=== PATIENT | male | born 1940 | race Caucasian/White ===

== ENCOUNTER → 2017-02-12 | Outpatient (CLI) | payer BC ==
[~2017-02-12] MED LIST: ALBU1AER9 INH; CETI10TA84 PO; MESA1.2T PO; OMEP20CA59 PO
[2017-02-12 12:19] LABS: BASO % 0.6 %; BASO ABS # 0.02 K/uL (0-0.2); COMPLETE YES; HEMATOCRIT 45.9 % (42-52); IG% 0.3 %; LYMPH % 36.5 %; LYMPH ABS # 1.22 K/uL (1.2-3.4); MEAN CELL VOLUME 92.5 fL (80-100); MEAN CORPUSCULAR HEMOGLOBIN 30.4 pg (25-34); MEAN CORPUSCULAR HGB CONC 32.9 g/dl (32-36); MEAN PLATELET VOLUME 10.4 fL (7.4-10.4); MONO % 15.6 %; PLATELET COUNT 241 K/uL (130-400); RED BLOOD COUNT 4.96 M/uL (4.7-6.1); WHITE BLOOD COUNT 3.34 K/uL (4.8-10.8)
[2017-02-12 12:36] LABS: ESTIMATED AVERAGE GLUCOSE 123 mg/dl; HA1C FLAG Normal (Normal)
[2017-02-12 12:42] LABS: ALT/SGPT 19 U/L (12-78); AST/SGOT 22 U/L (15-37); BLOOD UREA NITROGEN 13 mg/dl (7-18); BUN/CREATININE RATIO 13.4 (10-20); CALCIUM 8.5 mg/dl (8.5-10.1); CARBON DIOXIDE 30 mmol/L (21-32); CHLORIDE 105 mmol/L (98-107); CREATININE 0.94 mg/dl (0.60-1.40); GLUCOSE 86 mg/dl (70-99); POTASSIUM 4.3 mmol/L (3.5-5.1); SODIUM 137 mmol/L (136-145)
[2017-02-12 13:00] LABS: ALB/GLOB RATIO 0.8 (0.9-2); ALKALINE PHOSPHATASE 92 U/L (45-117); CHOLESTEROL 193 mg/dl (0-200); CHOLESTEROL/HDL RATIO 4.1; HDL CHOLESTEROL 47 mg/dl; LDL CHOLESTEROL CALCULATED 132 mg/dl; PROSTATE SPECIFIC ANTIGEN 0.562 ng/ml (0.000-4.000); TRIGLYCERIDES 68 mg/dl (0-150); VERY LOW DENSITY LIPOPROT CALC 14 mg/dl
== END | disposition home or self-care (01) ==
LOC: C.LABBFT 08:32
PROVIDERS: ATTEND Internal Medicine
DX: K51.90 Ulcerative colitis, unspecified, without complications (principal); K21.9 Gastro-esophageal reflux disease without esophagitis; E78.5 Hyperlipidemia, unspecified; R73.01 Impaired fasting glucose; J44.9 Chronic obstructive pulmonary disease, unspecified; J45.909 Unspecified asthma, uncomplicated; I71.4 Abdominal aortic aneurysm, without rupture; K22.2 Esophageal obstruction

== ENCOUNTER → 2017-02-19 | Outpatient (CLI) | payer BC ==
--- NOTE | 2017-02-19 09:17 | DIAGNOSTIC IMAGING REPORT ---
ABDOMINAL AORTIC ULTRASOUND CLINICAL HISTORY: Aneurysm of abdominal aorta. COMPARISON STUDY: Abdominal aortic ultrasound February 20, 2016. FINDINGS: There is borderline dilatation of the proximal abdominal aorta, measuring 3.1 x 2.5 cm. The mid abdominal aorta is ectatic but not aneurysmally dilated. 3.8 cm infrarenal abdominal aortic aneurysm is noted. Allowing for measurement variability, this has mildly increased in size since exam of February 20, 2016. This contains eccentric mural thrombus. There is slight dilatation of the proximal bilateral common iliac arteries. IMPRESSION: Mild increase in size of a 3.8 cm infrarenal abdominal aortic aneurysm since ultrasound of February 20, 2016. Electronically signed by: Robert Lagunas M.D. 02/19/2017 9:15 AM Dictated Date/Time: 02/19/2017 9:12 AM
== END | disposition home or self-care (01) ==
LOC: C.ULTR 08:42
PROVIDERS: ATTEND Internal Medicine
DX: I71.4 Abdominal aortic aneurysm, without rupture (principal)

== ENCOUNTER 2018-09-05 09:13 | Inpatient (IN) ==
[2018-09-05] MEDS ORDERED: SODIUM CHLORIDE 0.9% 1000ML 2,000 ML IV ONE (09:35)
--- NOTE | 2018-09-05 09:53 | XRay Report ---
XR chest 1V portable CLINICAL HISTORY: 78 years-old Male presenting with Sepsis. TECHNIQUE: Portable upright AP view of the chest was obtained. COMPARISON: 08/26/2012. FINDINGS: Cardiomediastinal silhouette normal. No focal opacity. No large effusion or pneumothorax. Osseous str uctures normal. Upper abdomen normal. IMPRESSION: 1. No acute cardiopulmonary disease. Electronically signed by: Simone Narayanan M.D. 09/05/2018 9:51 AM
[2018-09-05 10:20] LABS: INR 1.1 (0.9-1.1); Partial Thromboplastin Ratio 1.2; Partial Thromboplastin Time 32.4 Seconds (21.0-31.0); Prothrombin Time 11.1 Seconds (9.0-12.0)
[2018-09-05 10:24] LABS: Albumin Level 3.1 gm/dl (3.4-5.0); BUN Creatinine Ratio 16.1 (10-20); Calcium 8.4 mg/dl (8.5-10.1); Creatinine Clr Calc Pharmacy 52.7 ml/min; Est GFR (African American) 78.1; Est GFR (Non-African American) 67.4; Potassium 3.7 mmol/L (3.5-5.1)
[2018-09-05 10:28] LABS: Albumin Globulin Ratio 0.8 (0.9-2); Bilirubin,Total 0.8 mg/dl (0.2-1); Globulin 4.1 gm/dl (2.5-4.0); Total Protein 7.2 gm/dl (6.4-8.2)
[2018-09-05 10:34] LABS: Hematocrit (blood only) 41.9 % (42-52); Hemoglobin 14.4 g/dL (14.0-18.0); Mean Corpuscular Hgb Conc 34.4 g/dL (32-36); Mean Corpuscular Volume 90.1 fL (80-100); Mean Platelet Volume 12.3 fL (7.4-10.4); Platelet Count 50 K/uL (130-400); RDW Coefficient of Variation 13.7 % (11.5-14.5); RDW Standard Deviation 45.2 fL (36.4-46.3); Red Blood Count 4.65 M/uL (4.7-6.1); White Blood Count 1.83 K/uL (4.8-10.8)
[2018-09-05 10:36] LABS: Immature Granulocytes # (auto) 0.01 K/uL (0.00-0.02); Immature Granulocytes % (auto) 0.5 %; Lymphocytes # (auto) 0.14 K/uL (1.2-3.4); Lymphocytes % (auto) 7.7 %; Monocytes # (auto) 0.05 K/uL (0.11-0.59); Monocytes % (auto) 2.7 %; Neutrophils # (auto) 1.63 K/uL (1.4-6.5); Neutrophils % (auto) 89.1 %; Platelet Estimate Decreased (Normal)
[2018-09-05] MEDS ORDERED: IOVERSOL 100ml IV PRN (10:44)
--- NOTE | 2018-09-05 10:59 | CT Scan Report ---
CT head/brain wo con CLINICAL HISTORY: 78 years-old Male with unsteady. Acute headache with unsteady gait, fever and loss of appetite TECHNIQUE: Multiple axial CT images of the head were obtained without contrast. A dose lowering tech nique was utilized adhering to the principles of ALARA. CT DOSE: 887.32 mGy.cm COMPARISON: None. FINDINGS: No acute intracranial hemorrhage, midline shift, intracranial mass, hydrocephalus, territorial ischem ia or abnormal extra-axial collection. Mild age-related involutional changes. Minimal white matter hy podensities suggest a component of underlying chronic microvascular ischemic disease. Cerebral vascul ar calcifications are noted. The calvarium is intact. Moderate mucosal thickening of the paranasal sinuses. Trace mastoid effusio ns. Soft tissues and orbits are unremarkable. Suggestion of prior right-sided cataract repair. IMPRESSION: No acute intracranial abnormality. The above report was generated using voice recognition software. It may contain grammatical, syntax o r spelling errors. Electronically signed by: Stu Hernandes M.D. 09/05/2018 10:58 AM
[2018-09-05 11:12] LABS: Lyme Ab IgM w/WB Rflx Negative (Negative)
--- NOTE | 2018-09-05 11:15 | CT Scan Report ---
CT SCAN OF THE ABDOMEN AND PELVIS WITH IV CONTRAST CLINICAL HISTORY: Fever. Bloating. COMPARISON STUDY: Abdominal CT dated 08/25/2012. TECHNIQUE: Following the IV administration of 94 cc of Optiray 320, CT scan of the abdomen and pelvi s is performed from the lung bases to the proximal femora. Images are reviewed in the axial, sagittal , and coronal planes. IV contrast was administered without complication. A dose lowering technique wa s utilized adhering to the principles of ALARA. The examination is degraded by motion artifact. FINDINGS: Lung bases: The heart is mildly enlarged and without pericardial effusion. There are coronary artery calcifications. Emphysematous change is noted at the lung bases. No airspace consolidation or pleural effusion is identified. Liver: The contrast-enhanced liver is normal in size, contour, and attenuation. There is no intrahepa tic biliary ductal dilatation. The hepatic veins and portal veins are patent. Gallbladder: The gallbladder is distended. The wall appears slightly hyperemic. Question faint perich olecystic stranding versus motion artifact. Spleen: Normal in size and attenuation. Pancreas: Grossly unremarkable. Adrenal glands: Unremarkable. Kidneys: The contrast enhanced kidneys are normal in size and without hydronephrosis. There are numer ous foci of cortical scarring identified in the left kidney. The kidneys enhance symmetrically. There is a 4 mm nonobstructing left renal calculus. Abdominal vasculature: There is moderate atherosclerotic calcification of the abdominal aorta. An inf rarenal abdominal aortic aneurysm measures 3.8 cm in AP diameter and 4.1 cm in transverse diameter. Bowel: There is moderate colonic diverticulosis without CT evidence of acute diverticulitis. No bowel obstruction is seen. The appendix is well-visualized and normal. Peritoneum: There is no intraperitoneal free air or abdominal ascites. There is a fat-containing umbi lical hernia. Lymphadenopathy: None. Pelvic viscera: The prostate gland is enlarged and heterogeneous. The bladder wall is thickened and t rabeculated indicating chronic outlet obstruction. Skeletal structures: The skeletal structures are osteopenic. There is moderate lumbosacral spondylosi s. No lytic or blastic lesions are seen. IMPRESSION: 1. Motion compromised examination. 2. The gallbladder is distended. Question faint pericholecystic stranding versus motion artifact. Cli nical and laboratory correlation will be required. Consider ultrasound for further assessment of the gallbladder. 3. There is a 3.8 x 4.1 cm infrarenal abdominal aortic aneurysm. 4. Moderate colonic diverticulosis without CT evidence of acute diverticulitis. 5. There are numerous foci of cortical scarring identified in the left kidney and there is a small no nobstructing left renal calculus. 6. Cardiomegaly and emphysema. 7. Additional findings as above. Electronically signed by: Guerrero Leal M.D. 09/05/2018 11:14 AM
[2018-09-05 11:18] LABS: Lyme Ab IgG w/WB Rflx Positive (Negative)
[2018-09-05] MEDS ORDERED: DOXYCYCLINE HYCLATE 100 MG in DEXTROSE 5% 100 ML IV STA (11:35)
--- NOTE | 2018-09-05 12:33 | History & Physical Report ---
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 Per peripheral smear, there are some inclusions that are concerning for Anaplasma. - Follow up send-out Anaplasmosis - Treat with doxy - Follow blood cultures & keep an eye out for other infectious sources. - Monitor white count and platelets (2) COPD (chronic obstructive pulmonary disease): Patient did not note COPD to me, but it is in his outpatient notes. Outpatient notes indicate "inhalers," but none listed in his med list. No current shortness of breath except with a fever. No cough. CXR on 09/05 was negative for pneumonia or acute issues. - DuoNeb PRN (3) Ulcerative colitis: Outpatient notes indicate diagnosis with his last colonoscopy being quiescent. Reports he is no longer taking his [place]. - Monitor (4) GERD (gastroesophageal reflux disease): - Continue PPI (5) DVT prophylaxis: SCDs - Low DVT risk per admission calculator, plus platelts of just 50 at present. History of Present Illness Primary Care Provider: Simone Lomax MD 78yo M w/ no major PMH who presents with likely anaplasmosis and possible co- infection with Lyme disease. Patient has had fevers for ~4 days, usually 101- 104. Reports fevers/chills when the fever goes up. Has also been having some bloating. Reports that he is outside frequently and has had several tick bites. Also notes that he has some abdominal bloating as well. Otherwise, reports some shortness of breath that occurs when he is very febrile. None presently. Has been taking Tylenol for the fevers, but no antibiotics. 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 COPD (chronic obstructive pulmonary disease) 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 Ulcerative colitis Family History Mother Cerebral aneurysm Social History Preferred Language: Swazi Communication Ability: Effective Beliefs That Will Affect Care: None Current Living Situation: Spouse Other Information That Helps Us Care for You: No Feels Safe at Home: Yes Safety Concerns: Feels Safe At This Time Smoking Status: Former smoker Tobacco Type: smokeless tobacco Do You Dip or Chew Tobacco: Yes Hx Alcohol Use: No Hx Substance Use: No Review of Systems Review of Systems: All systems reviewed & are unremarkable except as noted in HPI & below Physical Exam Constitutional: WD/WN, vitals as above Eyes: EOM intact bilaterally; no conjunctival abnormality ENMT: external ear and nose normal, oropharynx normal Neck: trachea midline, no thyromegaly normal visual inspection Respiratory: normal respiratory effort, lungs clear to auscultation no respiratory distress Cardiovascular: RRR, no murmur, no edema Gastrointestinal (Abdomen): Inspection/Auscultation: abdomen normal to inspection; abdomen not distended Musculoskeletal: no cyanosis or clubbing, extremities motor strength 5/5 Skin: no rashes, warm and dry Neurologic: moves all extremities and awake Psychiatric: Orientation: alert, oriented to person and cooperative Results & Data Vital Signs (Past 12 Hours) Vital Signs Temp Pulse Pulse Resp BP BP Pulse Ox 09/05/18 11:14 110 H 20 137/77 93 09/05/18 09:17 36.7 C 91 H 18 114/67 93 PG Care Time/CCT Total # of Minutes Spent Total Time Spent with Patient: Total time spent is greater than 50% in coordination of care (as documented) at patient's floor/unit and/or counseling patient:
[2018-09-05 13:06] LABS: Appearance Urine Clear (Clear); Bacteria Urine Automated Negative (Negative); Bilirubin Urine Negative (Negative); Blood Urine 2+ (Negative); Color Urine Yellow; Glucose Urine UA Negative (Negative); Ketones Urine Trace (Negative); Leukocyte Esterase Urine Negative (Negative); Nitrite Urine Negative (Negative); Protein Urine 1+ (Negative); Specific Gravity Urine > 1.045 (1.000-1.030); Urobilinogen Urine Negative (Negative); pH Urine 5.5 (4.5-7.5)
[2018-09-05] MEDS ORDERED: ONDANSETRON INJ 2 MG/ML 2 ML VIAL IV PRN (14:51)
[2018-09-05] MEDS ORDERED: ACETAMINOPHEN 325 MG TAB PO PRN (14:51)
--- NOTE | 2018-09-05 15:58 | Emergency Department Note ---
Entered by Dede Archibald acting as a scribe for Jose A Jama DO History of Present Illness General Chief complaint: Fever Stated complaint: FEVER 104 Source: patient Mode of arrival: ambulatory Limitations: no limitations History of Present Illness Onset (ago): day(s) 5 Radiation: non-radiation Pain Consistency: + constant Associated symptoms: + loss of appetite and + other (+diarrhea, +abdominal bloating, -urinary symptoms, -recent wounds or open sores); no cough (-sore throat), no headaches and no nausea/vomiting Treatments prior to arrival: other (Tylenol) The patient is a 78 year old male who presents to the ED with complaints of a persistent fever for the past 5 days. His temperature started at 101 degrees, then gradually worsened. 4 days ago, his temperature was 104. He has been taking Tylenol and states he last had Tylenol at 0730 this morning. He complains of the chills and abdominal bloating. He denies any recent cough or sore throat. He has experienced an intermittent headache for the past 2 days, but states it has resolved today. He denies any urinary symptoms or recent wounds or open sores. He has experienced some diarrhea for the past 2 days and admits to a decreased appetite. He denies any recent vomiting. The patient states he experienced a tick bite a couple of months ago, but denies any recent bites. Home Medications Home Medications Medication Instructions Recorded Confirmed Type acetaminophen [Tylenol] 325 mg PO QID PRN 09/05/18 09/05/18 History cetirizine [Zyrtec] 10 mg PO QAM 09/05/18 09/05/18 History omeprazole 20 mg PO QAM 09/05/18 09/05/18 History Allergies Allergy/AdvReac Type Severity Reaction Status Date / Time No Known Allergies Allergy Verified 09/05/18 11:44 Past Med/Surg History Family History Mother Cerebral aneurysm Social History Preferred Language: Micronesian Communication Ability: Effective Beliefs That Will Affect Care: None Current Living Situation: Spouse Feels Safe at Home: Yes Smoking Status: Former smoker Tobacco Type: smokeless tobacco Hx Alcohol Use: No Hx Substance Use: No Review of Systems See HPI for pertinent positives & negatives. and A total of 10 systems reviewed and were otherwise negative Physical Exam Vital Signs Vital Signs - 24 hr 09/05/18 09:17 09/05/18 10:03 09/05/18 11:14 Temperature 36.7 C Temperature Source Oral Sepsis Recent Fever Within 48 Hours No Sepsis Action Taken by Nursing No Action Required Pulse Rate 91 H Pulse Rate [Apical] 110 H Pulse Rhythm [Apical] Regular Pulse Strength [Apical] Normal Respiratory Rate 18 20 Respiratory Effort / Characteristics Non-Labored Respiratory Depth Normal Normal Blood Pressure 114/67 Blood Pressure [Left Arm] 137/77 Blood Pressure Mean 82 Blood Pressure Mean [Left Arm] 97 Blood Pressure Position Sitting Blood Pressure Position [Left Arm] Lying Pulse Oximetry 93 93 Oxygen Delivery Method Room Air Room Air Room Air 09/05/18 12:01 Temperature Temperature Source Sepsis Recent Fever Within 48 Hours Sepsis Action Taken by Nursing Pulse Rate Pulse Rate [Apical] Pulse Rhythm [Apical] Pulse Strength [Apical] Respiratory Rate Respiratory Effort / Characteristics Respiratory Depth Blood Pressure Blood Pressure [Left Arm] Blood Pressure Mean Blood Pressure Mean [Left Arm] Blood Pressure Position Blood Pressure Position [Left Arm] Pulse Oximetry Oxygen Delivery Method Room Air GENERAL: Patient is sitting up in bed, alert, well appearing, well nourished, no distress, non-toxic EYE EXAM: normal conjunctiva, PERRL and EOM's intact OROPHARYNX: no exudate, no erythema, lips, buccal mucosa, and tongue normal and mucous membranes are moist NECK: supple, no nuchal rigidity, no adenopathy, non-tender LUNGS: Clear to auscultation. Normal chest wall mechanics HEART: no murmurs, S1 normal and S2 normal ABDOMEN: abdomen soft, non-tender, normo-active bowel sounds, no masses, no rebound or guarding. BACK: Back is symmetrical on inspection and there is no deformity, no midline tenderness, no CVA tenderness. SKIN: no rashes and no bruising UPPER EXTREMITIES: upper extremities are grossly normal. LOWER EXTREMITIES: No pitting edema. NEURO EXAM: Normal sensorium, cranial nerves II-XII grossly intact, normal speech, no gross weakness of arms, no gross weakness of legs. Gross sensation intact. Course ED COURSE: Vital signs were reviewed and showed normal vital signs. The patients medical record was reviewed The above diagnostic studies were performed and reviewed. ED treatments and interventions as stated above. 0930: The patient was evaluated in room B4. A complete history and physical examination was performed. 1102: Nursing informed me the patient is having increased pain. I will put in more medication orders. He is trying to pee for us. 1140: Upon reevaluation, the patient is resting comfortably. I discussed my findings with the patient and he understands and agrees with the treatment plan. 1144: I discussed the patients case with Loco Freedman [facility]. The patient will be further evaluated. Based on the patients age, coexisting illnesses, exam and lab findings the decision to treat as an inpatient was made. The patient remained stable while under my care. The patient will be evaluated for further management. Consultations Consultation #1: I [facility] the [facility]. The patient will be further evaluated. Time: 11:44 Administered Medications Acetaminophen (Tylenol) 650 mg PO Q4H PRN PRN Reason: Pain or Fever Stop: 10/05/18 14:50 Last Admin: 09/05/18 15:07 Dose: 650 mg Documented by: [id number] Discontinued Medications Sodium Chloride (Nss 1000ml) 2,000 mls @ 999 mls/hr IV .Q2H1M ONE Stop: 09/05/18 11:35 Last Infusion: 09/05/18 12:19 Dose: 0 mls/hr Documented by: [id number] Admin: 09/05/18 10:02 Dose: 999 mls/hr Documented by: [id number] Doxycycline Hyclate 100 mg/ (Dextrose) 110 mls @ 50 mls/hr IV NOW STA Stop: 09/05/18 13:46 Last Infusion: 09/05/18 14:44 Dose: 0 mls/hr Documented by: [id number] Admin: 09/05/18 12:18 Dose: 50 mls/hr Documented by: [id number] Ioversol (Optiray 320 100ml) 94 ml IV ONCE PRN PRN Reason: Interaction Checking Stop: 09/09/18 10:43 Last Admin: 09/05/18 10:44 Dose: 94 ml Documented by: [id number] Medical Decision Making Differential Diagnosis Differential diagnosis: Etiologies such as viral syndrome, otitis, pharyngitis, pneumonia, influenza, meningitis, urinary tract infection, sepsis, bacteremia, as well as others were entertained. Medical Records Attestation: I reviewed the patient's medical records. Home Medications Current Medication List: was personally reviewed by me Laboratory Data Attestation: I reviewed the patient's lab results. Result diagrams: 09/05/18 09:57 09/05/18 09:57 Lab Results 09/05/18 09/05/18 09/05/18 Range/Units 09:57 09:57 09:57 WBC 1.83 L (4.8-10.8) K/uL RBC 4.65 L (4.7-6.1) M/uL Hgb 14.4 (14.0-18.0) g/dL Hct 41.9 L (42-52) % MCV 90.1 (80-100) fL MCH 31.0 (25-34) pg MCHC 34.4 (32-36) g/dL RDW Std Deviation 45.2 (36.4-46.3) fL RDW Coeff of [place] 13.7 (11.5-14.5) % Plt Count 50 L (130-400) K/uL MPV 12.3 H (7.4-10.4) fL Immature Gran % (Auto) 0.5 % Neut % (Auto) 89.1 % Lymph % (Auto) 7.7 % Barber % (Auto) 2.7 % Eos % (Auto) 0.0 % Baso % (Auto) 0.0 % Immature Gran # (Auto) 0.01 (0.00-0.02) K/uL Neut # (Auto) 1.63 (1.4-6.5) K/uL Lymph # (Auto) 0.14 L (1.2-3.4) K/uL Barber # (Auto) 0.05 L (0.11-0.59) K/uL Eos # (Auto) 0.00 (0-0.5) K/uL Baso # (Auto) 0.00 (0-0.2) K/uL Blood Smear Review Platelet Estimate Decreased L (Normal) Peripher Smr Path Cons PT 11.1 (9.0-12.0) Seconds INR 1.1 (0.9-1.1) APTT 32.4 H (21.0-31.0) Seconds PTT Ratio 1.2 Sodium 134 L (136-145) mmol/L Potassium 3.7 (3.5-5.1) mmol/L Chloride 102 (98-107) mmol/L Carbon Dioxide 26 (21-32) mmol/L Anion Gap 6.0 (3-11) BUN 17 (7-18) mg/dl Creatinine 1.06 (0.6-1.4) mg/dl Est Cr Clr Drug Dosing 52.7 ml/min Est GFR ( Amer) 78.1 Est GFR (Non-Af Amer) 67.4 BUN/Creatinine Ratio 16.1 (10-20) Glucose 104 H (70-99) mg/dl Lactate (0.4-2.0) mmol/L Calcium 8.4 L (8.5-10.1) mg/dl Total Bilirubin 0.8 (0.2-1) mg/dl AST 40 H (15-37) U/L ALT 22 (12-78) U/L Alkaline Phosphatase 116 (45-117) U/L Total Protein 7.2 (6.4-8.2) gm/dl Albumin 3.1 L (3.4-5.0) gm/dl Globulin 4.1 H (2.5-4.0) gm/dl Albumin/Globulin Ratio 0.8 L (0.9-2) Lyme Disease IgG Ab (Negative) Lyme Disease IgM Ab (Negative) 09/05/18 09/05/18 Range/Units 09:57 09:57 WBC (4.8-10.8) K/uL RBC (4.7-6.1) M/uL Hgb (14.0-18.0) g/dL Hct (42-52) % MCV (80-100) fL MCH (25-34) pg MCHC (32-36) g/dL RDW Std Deviation (36.4-46.3) fL RDW Coeff of [place] (11.5-14.5) % Plt Count (130-400) K/uL MPV (7.4-10.4) fL Immature Gran % (Auto) % Neut % (Auto) % Lymph % (Auto) % Barber % (Auto) % Eos % (Auto) % Baso % (Auto) % Immature Gran # (Auto) (0.00-0.02) K/uL Neut # (Auto) (1.4-6.5) K/uL Lymph # (Auto) (1.2-3.4) K/uL Barber # (Auto) (0.11-0.59) K/uL Eos # (Auto) (0-0.5) K/uL Baso # (Auto) (0-0.2) K/uL Blood Smear Review Platelet Estimate (Normal) Peripher Smr Path Cons PT (9.0-12.0) Seconds INR (0.9-1.1) APTT (21.0-31.0) Seconds PTT Ratio Sodium (136-145) mmol/L Potassium (3.5-5.1) mmol/L Chloride (98-107) mmol/L Carbon Dioxide (21-32) mmol/L Anion Gap (3-11) BUN (7-18) mg/dl Creatinine (0.6-1.4) mg/dl Est Cr Clr Drug Dosing ml/min Est GFR ( Amer) Est GFR (Non-Af Amer) BUN/Creatinine Ratio (10-20) Glucose (70-99) mg/dl Lactate 1.1 (0.4-2.0) mmol/L Calcium (8.5-10.1) mg/dl Total Bilirubin (0.2-1) mg/dl AST (15-37) U/L ALT (12-78) U/L Alkaline Phosphatase (45-117) U/L Total Protein (6.4-8.2) gm/dl Albumin (3.4-5.0) gm/dl Globulin (2.5-4.0) gm/dl Albumin/Globulin Ratio (0.9-2) Lyme Disease IgG Ab Positive A (Negative) Lyme Disease IgM Ab Negative (Negative) Imaging Data Radiologist's Impression: Radiology results as stated below per my review and the radiologist's interpretation: CT head/brain wo con CLINICAL HISTORY: 78 years-old Male with unsteady. Acute headache with unsteady gait, fever and loss of appetite TECHNIQUE: Multiple axial CT images of the head were obtained without contrast. A dose lowering technique was utilized adhering to the principles of ALARA. CT DOSE: 887.32 mGy.cm COMPARISON: None. FINDINGS: No acute intracranial hemorrhage, midline shift, intracranial mass, hydrocephalus, territorial ischemia or abnormal extra-axial collection. Mild age-related involutional changes. Minimal white matter hypodensities suggest a component of underlying chronic microvascular ischemic disease. Cerebral vascular calcifications are noted. The calvarium is intact. Moderate mucosal thickening of the paranasal sinuses. Trace mastoid effusions. Soft tissues and orbits are unremarkable. Suggestion of prior right-sided cataract repair. IMPRESSION: No acute intracranial abnormality. The above report was generated using voice recognition software. It may contain grammatical, syntax or spelling errors. Electronically signed by: Stu Hernandes M.D. 09/05/2018 10:[address] SCAN OF THE ABDOMEN AND PELVIS WITH IV CONTRAST CLINICAL HISTORY: Fever. Bloating. COMPARISON STUDY: Abdominal CT dated 08/25/2012. TECHNIQUE: Following the IV administration of 94 cc of Optiray 320, CT scan of the abdomen and pelvis is performed from the lung bases to the proximal femora. Images are reviewed in the axial, sagittal, and coronal planes. IV contrast was administered without complication. A dose lowering technique was utilized adhering to the principles of ALARA. The examination is degraded by motion artifact. FINDINGS: Lung bases: The heart is mildly enlarged and without pericardial effusion. There are coronary artery calcifications. Emphysematous change is noted at the lung bases. No airspace consolidation or pleural effusion is identified. Liver: The contrast-enhanced liver is normal in size, contour, and attenuation. There is no intrahepatic biliary ductal dilatation. The hepatic veins and portal veins are patent. Gallbladder: The gallbladder is distended. The wall appears slightly hyperemic. Question faint pericholecystic stranding versus motion artifact. Spleen: Normal in size and attenuation. Pancreas: Grossly unremarkable. Adrenal glands: Unremarkable. Kidneys: The contrast enhanced kidneys are normal in size and without hydro nephrosis. There are numerous foci of cortical scarring identified in the left kidney. The kidneys enhance symmetrically. There is a 4 mm nonobstructing left renal calculus. Abdominal vasculature: There is moderate atherosclerotic calcification of the abdominal aorta. An infrarenal abdominal aortic aneurysm measures 3.8 cm in AP diameter and 4.1 cm in transverse diameter. Bowel: There is moderate colonic diverticulosis without CT evidence of acute diverticulitis. No bowel obstruction is seen. The appendix is well-visualized and normal. Peritoneum: There is no intraperitoneal free air or abdominal ascites. There is a fat-containing umbilical hernia. Lymphadenopathy: None. Pelvic viscera: The prostate gland is enlarged and heterogeneous. The bladder wall is thickened and trabeculated indicating chronic outlet obstruction. Skeletal structures: The skeletal structures are osteopenic. There is moderate lumbosacral spondylosis. No lytic or blastic lesions are seen. IMPRESSION: 1. Motion compromised examination. 2. The gallbladder is distended. Question faint pericholecystic stranding versus motion artifact. Clinical and laboratory correlation will be required. Consider ultrasound for further assessment of the gallbladder. 3. There is a 3.8 x 4.1 cm infrarenal abdominal aortic aneurysm. 4. Moderate colonic diverticulosis without CT evidence of acute diverticulitis. 5. There are numerous foci of cortical scarring identified in the left kidney and there is a small nonobstructing left renal calculus. 6. Cardiomegaly and emphysema. 7. Additional findings as above. Electronically signed by: Guerrero Leal M.D. 09/05/2018 11:14 AM XR chest 1V portable CLINICAL HISTORY: 78 years-old Male presenting with Sepsis. TECHNIQUE: Portable upright AP view of the chest was obtained. COMPARISON: 08/26/2012. FINDINGS: Cardiomediastinal silhouette normal. No focal opacity. No large effusion or pneumothorax. Osseous structures normal. Upper abdomen normal. IMPRESSION: 1. No acute cardiopulmonary disease. Electronically signed by: Simone Narayanan M.D. 09/05/2018 9:51 AM ECG Data Attestation: I personally reviewed and interpreted this ECG as follows: Indication: other (fever) Rate (beats per minute): 80 Rhythm: sinus rhythm Findings: + other (normal axis); no PVC Blood Pressure Blood Pressure Findings: Normal blood pressure Blood Pressure Disposition: did not require urgent referral MDM Narrative Patient is a 78-year-old male who presents the ER for weakness and fevers which have been present for the past 5 days. Fevers have been as high as 104. He no steven he has been bitten by multiple ticks recently. Patient was found to be initially afebrile and slightly tachycardic. He eventually spiked a fever of 38.7. Labs were obtained and showed a leukocytosis of 1.83. Hemoglobin of 14. There is a thrombus cytopenia at 50. 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 INR was unremarkable. BMP along with LFTs was unremarkable. UA has small amount of hematuria. IgG Lyme was positive. 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 Patient was given IV fluids and IV doxycycline. CT head and abdomen was unremarkable with exception of a mild fluid around his gallbladder. He is nontender but this was performed as he felt distended and uncomfortable. Do favor the symptoms again are most consistent with anaplasmosis. Patient was discussed with the hospitalist and admitted for further work-up. Impression & Plan Anaplasmosis, Thrombocytopenia, Leukopenia, Fever Discharge Plan Visit Data *Final* Discharge Date/Time: 09/05/18 13:37 Chief Complaint: Fever Stated Complaint: FEVER 104 ED Provider: Jose A Jama Discharge Problem: Anaplasmosis, Thrombocytopenia, Leukopenia, Fever Patient Disposition: Admitted As Inpatient Discharge Instructions Interventions: ED Discharge Assessment Last Done: 09/05/18 13:37 The scribe's documentation has been prepared under my direction and personally reviewed by me in its entirety. I confirm that the note above accurately reflects all work, treatment, procedures, and medical decision making performed by me.
[2018-09-05] MEDS: DOXYCYCLINE HYCLATE 100 MG in DEXTROSE 5% 100 ML IV SCH (20:31)
[2018-09-06 05:49] LABS: Hematocrit (blood only) 38.9 % (42-52); Hemoglobin 13.3 g/dL (14.0-18.0); Mean Corpuscular Hgb Conc 34.2 g/dL (32-36); Mean Corpuscular Volume 88.4 fL (80-100); RDW Coefficient of Variation 13.8 % (11.5-14.5); RDW Standard Deviation 44.8 fL (36.4-46.3)
[2018-09-06 06:10] LABS: Mean Platelet Volume 11.6 fL (7.4-10.4); Platelet Count 41 K/uL (130-400)
[2018-09-06 06:18] LABS: BUN Creatinine Ratio 18.1 (10-20); Calcium 8.4 mg/dl (8.5-10.1); Creatinine Clr Calc Pharmacy 72.5 ml/min; Est GFR (African American) 101.5; Est GFR (Non-African American) 87.5; Magnesium 1.6 mg/dl (1.8-2.4); Potassium 3.7 mmol/L (3.5-5.1)
[2018-09-06] MEDS: DOXYCYCLINE HYCLATE 100 MG in DEXTROSE 5% 100 ML IV SCH (08:16)
[2018-09-06] MEDS ORDERED: CETIRIZINE HCL 10 MG TABLET PO SCH (09:00)
[2018-09-06] MEDS ORDERED: PANTOprazole 40 MG TAB PO SCH (09:00)
[2018-09-06] MEDS: MAGNESIUM SULFATE / D5W 1 GM/100 ML BAG IV SCH ×2 (10:36→11:45)
--- NOTE | 2018-09-06 13:39 | Discharge Summary ---
Date of Service September 06, 2018 Admission HPI Per Admitting Provider 78yo M w/ no major PMH who presents with likely anaplasmosis and possible co- infection with Lyme disease. Patient has had fevers for ~4 days, usually 101- 104. Reports fevers/chills when the fever goes up. Has also been having some bloating. Reports that he is outside frequently and has had several tick bites. Also notes that he has some abdominal bloating as well. Otherwise, reports some shortness of breath that occurs when he is very febrile. None presently. Has been taking Tylenol for the fevers, but no antibiotics. Principal Diagnosis Anaplasmosis Discharge Exam Constitutional WD/WN, vitals as above Eyes EOM intact bilaterally; no conjunctival abnormality ENMT external ear and nose normal, oropharynx normal Neck trachea midline, no thyromegaly normal visual inspection Respiratory normal respiratory effort, lungs clear to auscultation no respiratory distress Cardiovascular RRR, no murmur, no edema Gastrointestinal (Abdomen) Inspection/Auscultation: abdomen normal to inspection; abdomen not distended Musculoskeletal no cyanosis or clubbing, extremities motor strength 5/5 Skin no rashes, warm and dry Neurologic moves all extremities and awake Psychiatric Orientation: alert, oriented to person and cooperative Discharge Data Allergies Allergy/AdvReac Type Severity Reaction Status Date / Time No Known Allergies Allergy Verified 09/05/18 11:44 Consultations 09/05/18 11:47 ED Decision to Admit Stat Ordered Studies 09/05/18 09:36 CT abd pelvis IV con only Stat CT head/brain wo con Stat Hospital Course (1) Anaplasmosis: Presumptive diagnosis with pancyctopenia. Per peripheral smear, there are some inclusions that are concerning for Anaplasma. - Follow up send-out Anaplasmosis as outpatient - Treat with doxy x 14 days (this will also treat any co-infections such as Lyme which is tentatively positive with IgG). - Follow up CBC in 1 week for platelets and white count. (2) COPD (chronic obstructive pulmonary disease): Patient did not note COPD to me, but it is in his outpatient notes. Outpatient notes indicate "inhalers," but none listed in his med list. No current shortness of breath except with a fever. No cough. CXR on 09/05 was negative for pneumonia or acute issues. - No inpatient needs. (3) Ulcerative colitis: Outpatient notes indicate diagnosis with his last colonoscopy being quiescent. Reports he is no longer taking his [place]. - Monitor (4) GERD (gastroesophageal reflux disease): - Continue PPI (5) DVT prophylaxis: SCDs - Low DVT risk per admission calculator Total Time Total Time Spent Total Time Spent (In Minutes): 35 Total Time Includes: Examination of the Patient and Communication With Other Providers Discharge Plan Discharge Items Patient Disposition: Home - Self-Care Reason For Visit: ANAPLASMOSIS Discharge Diagnosis: Anaplasmosis Discharge Goals: Diagnostic testing and Improve function Activity: Resume your previous activity Exercise/Sports: Gradually increase as tolerated Non-emergency contact: Primary Care Provider Call non-emergency contact if: your symptoms worsen, your pain is not controlled and your temperature is above 100.5 Follow-up/Referrals: Simone Lomax MD [Primary Care Provider] - 09/12/18 10:00 am (Please, follow up at Dr. Simone Lomax's office with his associate, Dr. Guerin, on WednesdaySeptember 12 at 10:00 am. *If you need to change this appointment, call the office at [phone].) Diet: Regular Other Ambulatory Orders: Complete Blood Count with Diff (Routine) Timeframe: 1 Week Location: Determined by Patient Ordered By: Jameson Bae Addtl Provider Instructions: Mr. Armstrong, You were admitted to the hospital with fevers and low blood counts that was caused by a tick-borne illness called anaplasmosis. Your fevers resolved on doxycycline, and we are discharging you on 13 more days of doxycycline. Please take the antibiotic until it is gone, even if you are feeling better soon. Take the first dose tonight before bed and 2 times per day after that. Please see Dr. Lomax in follow up. You can get your blood counts down later this week to be sure your counts are recovering. Please do a daily tick check when you have been outside. Treat your clothes and skin with spray that will help kill and prevent ticks from attaching. Prescriptions: New doxycycline hyclate 100 mg tablet 100 mg PO BID 13 Days Qty: 26 RF: 0 Continued acetaminophen [Tylenol] 325 mg Tablet 325 mg PO QID PRN (Reason: Pain) RF: 0 cetirizine [Zyrtec] 10 mg Tablet 10 mg PO QAM RF: 0 omeprazole 20 mg capsule,delayed release(/EC) 20 mg PO QAM RF: 0 Stand-Alone Forms: [facility] Discharge Orders: Discharge Order (Routine); Ordered 09/06/18 Ordered By: Jameson Bae Admission Data Admit Date/Time: 09/05/18 12:23 Attending Provider: Jameson Bae Admit Provider: Jameson Bae Primary Care Provider: Simone Lomax Other Providers: Jameson Bae Service: Medical Other Interventions: Discharge Summary Assessment (RN) Last Done: 09/06/18 13:32
[2018-09-10 11:55] LABS: 18KDIGG Band NONREACTIVE (NONREACTIVE); 23KDIGG Band NONREACTIVE (NONREACTIVE); 23KDIGM Band NONREACTIVE (NONREACTIVE); 28KDIGG Band NONREACTIVE (NONREACTIVE); 30KDIGG Band NONREACTIVE (NONREACTIVE); 39KDIGG Band NONREACTIVE (NONREACTIVE); 39KDIGM Band NONREACTIVE (NONREACTIVE); 41KDIGG Band REACTIVE (NONREACTIVE); 41KDIGM Band NONREACTIVE (NONREACTIVE); 45KDIGG Band NONREACTIVE (NONREACTIVE); 58KDIGG Band NONREACTIVE (NONREACTIVE); 66KDIGG Band NONREACTIVE (NONREACTIVE); 93KDIGG Band NONREACTIVE (NONREACTIVE); Lyme Antibodies, WB IgG NEGATIVE (NEGATIVE); Lyme Antibodies, WB IgM NEGATIVE (NEGATIVE)
== END 2018-09-06 14:46 | disposition home or self-care (01) | DRG 868 ==
LOC: ED 09:13 → 4E 12:23

== ENCOUNTER 2022-01-14 17:56 | Observation (INO) ==
[2022-01-14] MEDS ORDERED: SODIUM CHLORIDE 0.9% 1000ML 1,000 ML IV STA (18:17)
[2022-01-14] MEDS ORDERED: SODIUM CHLORIDE 0.9% 1000ML 1,000 ML IV ONE (18:19)
--- NOTE | 2022-01-14 18:44 | Emergency Department Note ---
Impression & Plan Acute lower GI bleeding, Bowel disease, inflammatory, Pneumonia ED Provider Note NAME: JANINE NUNN AGE: 81 SEX: M : 1940 ARRIVES VIA: Walk-In INFORMANT: Patient, the patient's family members ED PROVIDER(S): Toi Foote DO CHIEF COMPLAINT: Diarrhea HPI: The patient is an 81-year-old male who has a history of ulcerative colitis who presented to the emergency department for an evaluation of worsening symptoms. The patient states that about a week ago he started noticing worsening symptoms including diarrhea rectal bleeding bloating and gas. He also notices some upper abdominal pain. The patient has a longstanding history of this. He has been compliant with his outpatient medications. The patient was going to have a colonoscopy however he has a history of a AAA. For this reason he was felt to be a better candidate to have the colonoscopy in the hospital rather than as an outpatient. The patient was having difficulty tolerating p.o. liquids. 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 ROS: See above HPI for pertinent positives & negatives. A total of 10 systems reviewed and were otherwise negative. PAST MEDICAL HISTORY: See Below PAST SURGICAL HISTORY: See Below FAMILY HISTORY: See Below SOCIAL HISTORY: See Below HOME MEDICATIONS: See Below ALLERGIES: See Below VITALS: See Below PHYSICAL EXAMINATION: GENERAL: Patient is awake alert in no acute distress patient is resting comfortably and showing no signs of anxiety EYES: The conjunctivae are clear. The pupils are round and reactive. EARS, NOSE, MOUTH AND THROAT: The nose is without any evidence of any deformity. NECK: The neck is nontender and supple. RESPIRATORY: Normal respiratory effort is noted there is no evidence of wheezing rhonchi or rales CARDIOVASCULAR: Regular rate and rhythm noted there no murmurs rubs or gallops normal S1 normal S2. GASTROINTESTINAL: The abdomen is soft. Abdomen is nontender. MUSCULOSKELETAL/EXTREMITIES: There is no evidence of gross deformity full range of motion is noted in the hips and shoulders. SKIN: There is no obvious evidence of any rash. There are no petechiae, pallor or cyanosis noted. NEUROLOGIC: Patient is awake alert and oriented x3 MEDICAL DECISION MAKING: The patient is an 81-year-old male who presented to the emergency department for an evaluation of lower GI bleeding and abdominal pain. The patient did not have a physical exam consistent with acute surgical abdomen. He was sent to the emergency department by his primary gastroenterology group for evaluation as well as possible inpatient management and colonoscopy. The patient was treated with IV fluids in the emergency department. He was also treated with IV antie metics. He was also given IV antibiotics after his inflammatory markers were very elevated and chest x-ray could be consistent with pneumonia. I discussed the patient's condition with the on-call [facility] hospitalist. They have agreed to evaluate the patient in the emergency department for further management and disposition. Triage Nursing notes reviewed. Prior medical records reviewed Vital Signs: reviewed and remarkable for no significant abnormalities Differential diagnosis: Etiologies such as diverticulosis, AVM, coagulopathy, colitis, inflammatory bowel disease, malignancy,Karen-Castano tear, esophagitis, peptic ulcer disease, variceal bleed, gastritis, epistaxis, fissure, hemorrhoids, as well as others were entertained. ER treatment provided: See below Diagnostics interpreted by me: ECG: none Cardiac Monitoring: An order was placed for continuous cardiac monitoring. The monitor shows a rate of 73 bpm with sinus rhythm. Laboratory studies: As stated above and show below. Imaging studies: See below Consultation(s): I discussed this case with Rosa Moran. I discussed this case with Dr. Chacon [facility]. 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 GERD (gastroesophageal reflux disease) Hiatal hernia Schatzki's ring Traumatic blindness of right eye Surgical History H/O sinus surgery History of colonoscopy History of esophagogastroduodenoscopy (EGD) Family History Mother Acute myocardial infarction Cerebral aneurysm Sister COPD (chronic obstructive pulmonary disease) Unknown Cardiovascular disease Son Diabetes Brother Acute myocardial infarction Other No family history of adverse response to anesthesia Denies family history of Ovarian cancer Prostate cancer Myocardial infarction Breast cancer Lung cancer Colorectal cancer Stroke Social History Smoking Status: Former smoker Tobacco Type: Smokeless Tobacco (Dip or Chew) Second Hand Exposure: Yes (son does sometimes when hes at home ); Hx Alcohol Use: No Hx Substance Use: No Preferred Language: Japanese Communication Ability: Effective Visual Impairment: Limited Hearing Ability: Normal Pulmonary Physician Required: No Beliefs That Will Affect Care: None marital status: Current Living Situation: Spouse current occupational status: retired How many Children do You have: 3 Feels Safe at Home: Yes Childhood Exposure to Second-Hand Smoke: No caffeine: Yes (coffee and tea ) Dental Care, Regularly: No Physical Activity Frequency: 3-4 Times per Week Physical Activity Frequency Comment: goes on walks Seatbelt Use: always Sunscreen Use: No Assistive Devices: Denture - Upper and Glasses Allergies Allergies Allergy/AdvReac Type Severity Reaction Status Date / Time No Known Allergies Allergy Verified 01/14/22 19:30 Home Meds Home Medications Medication Instructions Recorded Confirmed cetirizine 10 mg tablet (Zyrtec) 10 mg PO QAM 09/05/18 01/14/22 Previous Rx's Medication Instructions Recorded mesalamine 1.2 gram tablet,delayed 2.4 g PO BID 90 days #360 tabs 10/23/21 release (Lialda) quetiapine 25 mg tablet (Seroquel) 25 mg PO BID #30 tabs 12/04/21 omeprazole 20 mg capsule,delayed 20 mg PO QAM #90 caps 12/31/21 release Results & Data (ED) Vital Signs Vital Signs - 24 hr 01/14/22 17:57 01/14/22 18:40 01/14/22 20:02 Temperature 36.6 C Temperature Source Temporal Artery Scan Pulse Rate 78 Pulse Rate [Apical] 80 Pulse Rhythm [Apical] Regular Pulse Strength [Apical] Normal Respiratory Rate 16 18 Respiratory Effort / Characteristics Non-Labored Respiratory Depth Normal Normal Respiratory Pattern Regular Blood Pressure 124/77 Blood Pressure [Right Arm] 118/72 Blood Pressure Mean 92 Blood Pressure Mean [Right Arm] 87 Blood Pressure Position Sitting Blood Pressure Position [Right Arm] Lying Pulse Oximetry 94 95 95 Oxygen Delivery Method Room Air Room Air Room Air Sepsis Recent Fever Within 48 Hours No Sepsis New/Unexplained Change in Mental Status No Sepsis Action Taken by Nursing No Action Required 01/14/22 22:00 Temperature Temperature Source Pulse Rate Pulse Rate [Apical] 73 Pulse Rhythm [Apical] Regular Pulse Strength [Apical] Normal Respiratory Rate 18 Respiratory Effort / Characteristics Non-Labored Respiratory Depth Normal Respiratory Pattern Regular Blood Pressure Blood Pressure [Right Arm] 118/62 Blood Pressure Mean Blood Pressure Mean [Right Arm] 80 Blood Pressure Position Blood Pressure Position [Right Arm] Lying Pulse Oximetry 95 Oxygen Delivery Method Room Air Sepsis Recent Fever Within 48 Hours Sepsis New/Unexplained Change in Mental Status Sepsis Action Taken by Long Term Medications Current Medication List: was personally reviewed by me Laboratory Data Attestation: I reviewed the patient's lab results. Result diagrams: 01/14/22 18:33 01/14/22 18:33 Lab Results 01/14/22 01/14/22 01/14/22 Range/Units 18:33 18:33 18:33 WBC 7.94 (4.8-10.8) K/ul RBC 4.24 L (4.63-6.08) M/uL Hgb 13.1 L (14.0-18.0) g/dl Hct 39.0 L (40.1-51.0) % MCV 92.0 (80.0-100.0) fL MCH 30.9 (25.0-34.0) pg MCHC 33.6 (32.0-36.0) g/dL RDW Std Deviation 42.7 (36.4-46.3) fL RDW Coeff of [place] 12.7 (11.5-14.5) % Plt Count 257 (130-400) K/uL MPV 10.3 (9.4-12.4) fL Immature Gran % (Auto) 0.4 % Neut % (Auto) 69.4 % Lymph % (Auto) 19.6 % [place] % (Auto) 10.2 % Eos % (Auto) 0.0 % Baso % (Auto) 0.4 % Neut # (Auto) 5.51 (1.4-6.5) K/uL Lymph # (Auto) 1.56 (1.2-3.4) K/uL [place] # (Auto) 0.81 (0.24-0.82) K/uL Eos # (Auto) 0.00 (0-0.50) K/uL Baso # (Auto) 0.03 (0-0.2) K/uL Immature Gran # (Auto) 0.03 H (0.00-0.02) K/uL ESR 68 H (0-20) mm/hr Sodium 135 L (136-145) mmol/L Potassium 3.9 (3.5-5.1) mmol/L Chloride 103 (98-107) mmol/L Carbon Dioxide 26 (21-32) mmol/L Anion Gap 6 (3-11) BUN 23 (6-23) mg/dl Creatinine 1.09 (0.6-1.4) mg/dl Est Cr Clr Drug Dosing 47.6 ml/min Est GFR ( Amer) 73.9 ml/min Est GFR (Non-Af Amer) 63.8 ml/min BUN/Creatinine Ratio 21.1 H (10-20) Glucose 119 H (70-99(Fasting)) mg/dl Calcium 8.9 (8.5-10.1) mg/dl Total Bilirubin 0.7 (0.2-1.0) mg/dl AST 20 (13-39) U/L ALT 16 (7-52) U/L Alkaline Phosphatase 72 (34-104) U/L C-Reactive Protein 16.77 H (0-0.5) mg/dl Total Protein 7.6 (6.0-8.3) gm/dl Albumin 3.6 (3.4-5.0) gm/dl Globulin 4.0 (2.5-4.0) gm/dl Albumin/Globulin Ratio 0.9 (0.9-2) Lipase 46 (11-82) U/L Procalcitonin (0-0.5) ng/ml Urine Color Urine Appearance (Clear) Urine pH (4.5-7.5) Ur Specific [place] (1.000-1.030) Urine Protein (Negative) Urine Glucose (UA) (Negative) Urine Ketones (Negative) Urine Blood (Negative) Urine Nitrite (Negative) Urine Bilirubin (Negative) Urine Urobilinogen (Negative) Ur Leukocyte Esterase (Negative) Urine WBC (Auto) (0-5) /hpf Urine RBC (Auto) (0-4) /hpf U Hyaline Cast (Auto) (0-5) /lpf U Epithel Cells (Auto) (0-5) /lpf Urine Bacteria (Auto) (Negative) SARS-CoV-2 (PCR) (Negative) Influenza Type A (PCR) (Neg) Influenza Type B (PCR) (Neg) RSV (RT-PCR) (Neg) 01/14/22 01/14/22 01/14/22 Range/Units 18:33 18:33 18:33 WBC (4.8-10.8) K/ul RBC (4.63-6.08) M/uL Hgb (14.0-18.0) g/dl Hct (40.1-51.0) % MCV (80.0-100.0) fL MCH (25.0-34.0) pg MCHC (32.0-36.0) g/dL RDW Std Deviation (36.4-46.3) fL RDW Coeff of [place] (11.5-14.5) % Plt Count (130-400) K/uL MPV (9.4-12.4) fL Immature Gran % (Auto) % Neut % (Auto) % Lymph % (Auto) % [place] % (Auto) % Eos % (Auto) % Baso % (Auto) % Neut # (Auto) (1.4-6.5) K/uL Lymph # (Auto) (1.2-3.4) K/uL [place] # (Auto) (0.24-0.82) K/uL Eos # (Auto) (0-0.50) K/uL Baso # (Auto) (0-0.2) K/uL Immature Gran # (Auto) (0.00-0.02) K/uL ESR (0-20) mm/hr Sodium (136-145) mmol/L Potassium (3.5-5.1) mmol/L Chloride (98-107) mmol/L Carbon Dioxide (21-32) mmol/L Anion Gap (3-11) BUN (6-23) mg/dl Creatinine (0.6-1.4) mg/dl Est Cr Clr Drug Dosing ml/min Est GFR ( Amer) ml/min Est GFR (Non-Af Amer) ml/min BUN/Creatinine Ratio (10-20) Glucose (70-99(Fasting)) mg/dl Calcium (8.5-10.1) mg/dl Total Bilirubin (0.2-1.0) mg/dl AST (13-39) U/L ALT (7-52) U/L Alkaline Phosphatase (34-104) U/L C-Reactive Protein (0-0.5) mg/dl Total Protein (6.0-8.3) gm/dl Albumin (3.4-5.0) gm/dl Globulin (2.5-4.0) gm/dl Albumin/Globulin Ratio (0.9-2) Lipase (11-82) U/L Procalcitonin 2.34 H (0-0.5) ng/ml Urine Color Yellow Urine Appearance Clear (Clear) Urine pH 5.0 (4.5-7.5) Ur Specific [place] 1.022 (1.000-1.030) Urine Protein Trace H (Negative) Urine Glucose (UA) Negative (Negative) Urine Ketones Trace H (Negative) Urine Blood Negative (Negative) Urine Nitrite Negative (Negative) Urine Bilirubin Negative (Negative) Urine Urobilinogen Negative (Negative) Ur Leukocyte Esterase Trace H (Negative) Urine WBC (Auto) 5-10 H (0-5) /hpf Urine RBC (Auto) 0-4 (0-4) /hpf U Hyaline Cast (Auto) 0 (0-5) /lpf U Epithel Cells (Auto) 5-10 H (0-5) /lpf Urine Bacteria (Auto) Negative (Negative) SARS-CoV-2 (PCR) NEGATIVE (Negative) Influenza Type A (PCR) Negative (Neg) Influenza Type B (PCR) Negative (Neg) RSV (RT-PCR) Negative (Neg) Administered Medications Discontinued Medications Sodium Chloride (Nss 1000ml) 1,000 mls @ 999 mls/hr IV .Q1H1M STA Stop: 01/14/22 19:17 Last Infusion: 01/14/22 19:49 Dose: 0 mls/hr Documented By: Admin: 01/14/22 18:39 Dose: 999 mls/hr Documented By: ML Sodium Chloride (Nss 1000ml) 1,000 mls @ 999 mls/hr IV .Q1H1M ONE Stop: 01/14/22 19:19 Last Admin: 01/14/22 18:39 Dose: Not Given Documented By: ML Piperacillin Sod/Tazobactam Sod (Zosyn) 4.5 gm in 120 mls @ 240 mls/hr IV NOW ONE Stop: 01/14/22 20:59 Last Infusion: 11/16/22 21:51 Dose: 0 mls/hr Documented By: Admin: 01/14/22 21:18 Dose: 240 mls/hr Documented By: LRS Imaging Data Radiologist's Impression: Chest X-Ray 01/14/22 18:17 XR chest 1V portable HISTORY: Fever. COMPARISON: Chest 03/08/2021. FINDINGS: No pneumothorax. No pleural effusions. The cardiac silhouette remains borderline enlarged. There is mild elevation of the right hemidiaphragm, unchanged. Right greater than left interstitial/vascular thickening suggestive of mild congestive change. Patchy right basilar densities could be due to the asymmetric congestive change or a developing pneumonitis. IMPRESSION: Right greater than left interstitial/vascular thickening suggestive of mild asymmetric congestive change. Patchy right basilar densities could be due to the asymmetric congestive change or a developing pneumonitis. ACT 112: Negative or not required by law. Electronically signed by: Pan Sawyer M.D. 01/14/2022 8:23 PM Discharge Plan Visit Data Chief Complaint: GI Assessment Stated Complaint: CANNOT STOP GOING TO THE BATHROOM ED Provider: Toi Foote Discharge Problem: Acute lower GI bleeding, Bowel disease, inflammatory, Pneumonia Patient Disposition: Being Evaluated by Hospitalist Forms Stand Alone Forms: My [employer] Prescriptions Prescriptions: No Action mesalamine [Lialda] 1.2 gram tablet,delayed release (DR/EC) 2.4 g PO BID 90 Days Qty: 360 3RF quetiapine [Seroquel] 25 mg tablet 25 mg PO BID Qty: 30 3RF omeprazole 20 mg capsule,delayed release(DR/EC) 20 mg PO QAM Qty: 90 3RF cetirizine [Zyrtec] 10 mg Tablet 10 mg PO QAM Referrals Referrals: Simone Lomax MD [Primary Care Provider] -
[2022-01-14 18:59] LABS: Basophils # (auto) 0.03 K/uL (0-0.2); Basophils % (auto) 0.4 %; Hemoglobin 13.1 g/dl (14.0-18.0); Immature Granulocytes # (auto) 0.03 K/uL (0.00-0.02); Immature Granulocytes % (auto) 0.4 %; Lymphocytes # (auto) 1.56 K/uL (1.2-3.4); Lymphocytes % (auto) 19.6 %; Mean Corpuscular Hemoglobin 30.9 pg (25.0-34.0); Mean Corpuscular Hgb Conc 33.6 g/dL (32.0-36.0); Mean Platelet Volume 10.3 fL (9.4-12.4); Monocytes # (auto) 0.81 K/uL (0.24-0.82); Monocytes % (auto) 10.2 %; Neutrophils # (auto) 5.51 K/uL (1.4-6.5); Neutrophils % (auto) 69.4 %; Platelet Count 257 K/uL (130-400); RDW Coefficient of Variation 12.7 % (11.5-14.5); RDW Standard Deviation 42.7 fL (36.4-46.3); Red Blood Count 4.24 M/uL (4.63-6.08); White Blood Count 7.94 K/ul (4.8-10.8)
[2022-01-14 19:05] LABS: Appearance Urine Clear (Clear); Bacteria Urine Automated Negative (Negative); Bilirubin Urine Negative (Negative); Blood Urine Negative (Negative); Cast Urine Automated 0 /lpf (0-5); Color Urine Yellow; Glucose Urine UA Negative (Negative); Ketones Urine Trace (Negative); Leukocyte Esterase Urine Trace (Negative); Nitrite Urine Negative (Negative); Protein Urine Trace (Negative); RBC Urine Automated 0-4 /hpf (0-4); Specific Gravity Urine 1.022 (1.000-1.030); Urobilinogen Urine Negative (Negative)
[2022-01-14 19:17] LABS: Albumin Globulin Ratio 0.9 (0.9-2); Albumin Level 3.6 gm/dl (3.4-5.0); BUN Creatinine Ratio 21.1 (10-20); Bilirubin,Total 0.7 mg/dl (0.2-1.0); C Reactive Protein 16.77 mg/dl (0-0.5); Calcium 8.9 mg/dl (8.5-10.1); Creatinine Clr Calc Pharmacy 47.6 ml/min; Est GFR (African American) 73.9 ml/min; Est GFR (Non-African American) 63.8 ml/min; Potassium 3.9 mmol/L (3.5-5.1); Total Protein 7.6 gm/dl (6.0-8.3)
[2022-01-14 19:46] LABS: Influenza A virus by PCR Negative (Neg); Influenza B virus by PCR Negative (Neg); RSV by PCR Negative (Neg); SARS CoV2 RNA(COVID-19)Cepheid NEGATIVE (Negative)
--- NOTE | 2022-01-14 20:25 | XRay Report ---
XR chest 1V portable HISTORY: Fever. COMPARISON: Chest 03/08/2021. FINDINGS: No pneumothorax. No pleural effusions. The cardiac silhouette remains borderline enlarged. There is mild elevation of the right hemidiaphragm, unchanged. Right greater than left interstitial/v ascular thickening suggestive of mild congestive change. Patchy right basilar densities could be due to the asymmetric congestive change or a developing pneumonitis. IMPRESSION: Right greater than left interstitial/vascular thickening suggestive of mild asymmetric congestive eusebia nge. Patchy right basilar densities could be due to the asymmetric congestive change or a developing pneumonitis. ACT 112: Negative or not required by law. Electronically signed by: Pan Sawyer M.D. 01/14/2022 8:23 PM
[2022-01-14] MEDS ORDERED: PIPERACILLIN/TAZOBACTAM 4.5 GM/120 ML BAG IV ONE (20:30)
[2022-01-14] MEDS ORDERED: MESALAMINE 800 MG TABCR PO STA (22:02)
--- NOTE | 2022-01-14 22:03 | History & Physical Report ---
Date of Service January 14, 2022 Assessment & Plan (1) Ulcerative colitis: Plan: 81yo male with history of UC presenting with several weeks of progressive symptoms - increased frequency and urgency of BMs, passage of bloody stools. Patient contacted GI and was directed to the ER for inpatient colonoscopy given history of AAA. He is afebrile, HD stable, non-toxic in appearance. Abdomen is soft, NT/ND with mildly hyperactive bowel sounds. Labs are significant for elevation of ESR, CRP as well as procalcitonin. -Admit to medical -Continue Mesalamine - patient is on Mesalamine delayed release - 2.4gm BID (non-formulary) - will given Mesalamine 800 mg po TID while inpatient -Will avoid steroids for now given patient's adverse reaction in the past. ?Rectal preparation -GI consultation appreciated -Continue Zosyn for now - elevation of procalcitonin - question bacterial enterocolitis. Stool PCR is unremarkable (2) AAA (abdominal aortic aneurysm): Plan: US from 12/01/21 revealed aneurysm of distal abdominal aorta measuring 4.9 x 5.1cm with mural thrombus. This has increased in size from study 03/07/20 (US from 03/07/20 revealed 42mm infrarenal abdominal aortic aneurysm. No clinical s uggestion of bleeding or rupture. Patient is scheduled to see Vascular Surgery on 02/03/22 to discuss elective repair (3) COPD (chronic obstructive pulmonary disease): Plan: Patient denies cough, SOB or wheeze. No use of home O2. No wheeze noted on exam -Monitor (4) GERD (gastroesophageal reflux disease): Plan: Chronic. Patient on Omeprazole 20mg po qAM -Protonix 40mg po daily while inpatient F/E/N - LR at 80mL/hr x 1L, monitor electrolytes and replete as needed, clear liquids for now Ppx - SCDs Code - Full Dispo - Admit to medical with telemetry History of Present Illness Chief Complaint: frequent bloody BMs Primary Care Provider: Simone Lomax MD Daniel Armstrong is a pleasant 81yo male with history of Ulcerative Colitis on Mesalamine presenting with frequent bloody BMs. Patient reports progression of his symptoms over the last several weeks with acute worsening over the last week. He reports a lot of gas and bloating and is having over 15 stools daily - small volume, liquid stool with bright red blood. Yesterday he had a brief episode of fever to 101 as well as chills, nausea and vomiting. He denies chest pain, pressure, palpitations, cough, SOB, abdominal pain, dysuria or rash. No additional complaints at this time. Patient has been on Prednisone in the past for UC flare but develops some forgetfulness, poor sleep and behavioral changes. Patient follows with GI. Recently transitioned to Dr. Kitchen. He was being scheduled for an outpatient colonoscopy. However, patient with AAA measuring 4.9 x 5.1cm, therefore, inpatient procedure followed by hospital observation is preferred. He has an appointment with Dr. Roach on 02/03/22 for evaluation for elective repair. In the ER he is afebrile, HD stable, NAD. ER Course: Zosyn NSS Allergies Allergy/AdvReac Type Severity Reaction Status Date / Time No Known Allergies Allergy Verified 01/14/22 19:30 Home Medications Medication Instructions Recorded Confirmed Type cetirizine 10 mg tablet (Zyrtec) 10 mg PO QAM 09/05/18 01/14/22 History mesalamine 1.2 gram tablet,delayed 2.4 g PO BID 90 days #360 tabs 10/23/21 01/14/22 Rx release (Lialda) quetiapine 25 mg tablet (Seroquel) 25 mg PO BID #30 tabs 12/04/21 01/14/22 Rx omeprazole 20 mg capsule,delayed 20 mg PO QAM #90 caps 12/31/21 01/14/22 Rx release Past Med/Surg History Medical History AAA (abdominal aortic aneurysm) PCP monitors - last ultrasound approx [address] scan, gallbladder Chronic lower back pain COPD (chronic obstructive pulmonary disease) no inhaler Dyslipidemia 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 GERD (gastroesophageal reflux disease) Hiatal hernia Schatzki's ring Traumatic blindness of right eye Surgical History H/O sinus surgery History of colonoscopy History of esophagogastroduodenoscopy (EGD) Family History Mother Acute myocardial infarction Cerebral aneurysm Sister COPD (chronic obstructive pulmonary disease) Unknown Cardiovascular disease Son Diabetes Brother Acute myocardial infarction Other No family history of adverse response to anesthesia Denies family history of Ovarian cancer Prostate cancer Myocardial infarction Breast cancer Lung cancer Colorectal cancer Stroke Social History Smoking Status: Former smoker Tobacco Type: Smokeless Tobacco (Dip or Chew) Second Hand Exposure: Yes (son does sometimes when hes at home ); Hx Alcohol Use: No Hx Substance Use: No Preferred Language: Turkmen Communication Ability: Effective Visual Impairment: Limited Hearing Ability: Normal 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 Beliefs That Will Affect Care: None marital status: Current Living Situation: Spouse current occupational status: retired How many Children do You have: 3 Feels Safe at Home: Yes Childhood Exposure to Second-Hand Smoke: No caffeine: Yes (coffee and tea ) Dental Care, Regularly: No Physical Activity Frequency: 3-4 Times per Week Physical Activity Frequency Comment: goes on walks Seatbelt Use: always Sunscreen Use: No Assistive Devices: Denture - Upper and Glasses Review of Systems Review of Systems: All systems reviewed & are unremarkable except as noted in HPI & below Physical Exam Physical Exam: General: patient resting comfortably, NAD, non-toxic in appearance, AA&O x 4 Skin: warm, dry, intact, no rashes or lesions HEENT: NC/AT, right pupil irregular, EOMI, anicteric sclera, conjunctiva without injection, external ear normal to inspection and nontender, nares patent, moist mucus membranes, dentition intact, no oropharyngeal lesions, neck supple, trachea midline, no LAD, no thyromegaly, no JVD Heart: +S1/S2, regular with frequent ectopy, no m/r/g Lungs: equal air entry bilaterally, no rales/rhonchi/wheezes Abd: +BS, soft, NT/ND, no masses/organomegaly/ascites Ext: warm, 2+ pulses in UE/LE bilaterally, no clubbing/cyanosis or edema Neuro: nonfocal, patient AA&O x 4, speech intact, no facial droop, moving all extremities on command with equal strength 5/5 Results & Data Results & Data ([facility]) Vital Signs (Past 12 Hours) Vital Signs Temp Pulse Pulse Resp BP BP Pulse Ox 01/14/22 22:00 73 18 118/62 95 01/14/22 20:02 80 18 118/72 95 01/14/22 18:40 95 01/14/22 17:57 36.6 C 78 16 124/77 94 O2 Del Method 01/14/22 22:00 Room Air 01/14/22 20:02 Room Air 01/14/22 18:40 Room Air 01/14/22 17:57 Room Air Laboratory Results Laboratory Results WBC 7.94 K/ul (4.8-10.8) 01/14/22 18:33 RBC 4.24 M/uL (4.63-6.08) L 01/14/22 18:33 Hgb 13.1 g/dl (14.0-18.0) L 01/14/22 18:33 Hct 39.0 % (40.1-51.0) L 01/14/22 18:33 MCV 92.0 fL (80.0-100.0) 01/14/22 18:33 MCH 30.9 pg (25.0-34.0) 01/14/22 18:33 MCHC 33.6 g/dL (32.0-36.0) 01/14/22 18:33 RDW Std Deviation 42.7 fL (36.4-46.3) 01/14/22 18:33 RDW Coeff of [place] 12.7 % (11.5-14.5) 01/14/22 18:33 Plt Count 257 K/uL (130-400) 01/14/22 18:33 MPV 10.3 fL (9.4-12.4) 01/14/22 18:33 Immature Gran % (Auto) 0.4 % 01/14/22 18:33 Neut % (Auto) 69.4 % 01/14/22 18:33 Lymph % (Auto) 19.6 % 01/14/22 18:33 Burnett % (Auto) 10.2 % 01/14/22 18:33 Eos % (Auto) 0.0 % 01/14/22 18:33 Baso % (Auto) 0.4 % 01/14/22 18:33 Neut # (Auto) 5.51 K/uL (1.4-6.5) 01/14/22 18:33 Lymph # (Auto) 1.56 K/uL (1.2-3.4) 01/14/22 18:33 Burnett # (Auto) 0.81 K/uL (0.24-0.82) 01/14/22 18:33 Eos # (Auto) 0.00 K/uL (0-0.50) 01/14/22 18:33 Baso # (Auto) 0.03 K/uL (0-0.2) 01/14/22 18: Immature Gran # (Auto) 0.03 K/uL (0.00-0.02) H 01/14/22 18:33 ESR 68 mm/hr (0-20) H 01/14/22 18:33 Sodium 135 mmol/L (136-145) L 01/14/22 18:33 Potassium 3.9 mmol/L (3.5-5.1) 01/14/22 18:33 Chloride 103 mmol/L (98-107) 01/14/22 18:33 Carbon Dioxide 26 mmol/L (21-32) 01/14/22 18:33 Anion Gap 6 (3-11) 01/14/22 18:33 BUN 23 mg/dl (6-23) 01/14/22 18:33 Creatinine 1.09 mg/dl (0.6-1.4) 01/14/22 18:33 Est Cr Clr Drug Dosing 47.6 ml/min 01/14/22 18:33 Est GFR ( Amer) 73.9 ml/min 01/14/22 18:33 Est GFR (Non-Af Amer) 63.8 ml/min 01/14/22 18:33 BUN/Creatinine Ratio 21.1 (10-20) H 01/14/22 18:33 Glucose 119 mg/dl (70-99(Fasting)) H 01/14/22 18:33 Calcium 8.9 mg/dl (8.5-10.1) 01/14/22 18:33 Total Bilirubin 0.7 mg/dl (0.2-1.0) 01/14/22 18:33 AST 20 U/L (13-39) 01/14/22 18:33 ALT 16 U/L (7-52) 01/14/22 18:33 Alkaline Phosphatase 72 U/L (34-104) 01/14/22 18:33 C-Reactive Protein 16.77 mg/dl (0-0.5) H 01/14/22 18:33 Total Protein 7.6 gm/dl (6.0-8.3) 01/14/22 18: Albumin 3.6 gm/dl (3.4-5.0) 01/14/22 18: Globulin 4.0 gm/dl (2.5-4.0) 01/14/22 18: Albumin/Globulin Ratio 0.9 (0.9-2) 01/14/22 18: Lipase 46 U/L (11-82) 01/14/22 18: Procalcitonin 2.34 ng/ml (0-0.5) H 01/14/22 18: Urine Color Yellow 01/14/22 18: Urine Appearance Clear (Clear) 01/14/22 18: Urine pH 5.0 (4.5-7.5) 01/14/22 18: Ur Specific Hollis 1.022 (1.000-1.030) 01/14/22 18:33 Urine Protein Trace (Negative) H 01/14/22 18:33 Urine Glucose (UA) Negative (Negative) 01/14/22 18: Urine Ketones Trace (Negative) H 01/14/22 18:33 Urine Blood Negative (Negative) 01/14/22 18: Urine Nitrite Negative (Negative) 01/14/22 18: Urine Bilirubin Negative (Negative) 01/14/22 18:33 Urine Urobilinogen Negative (Negative) 01/14/22 18:33 Ur Leukocyte Esterase Trace (Negative) H 01/14/22 18:33 Urine WBC (Auto) 5-10 /hpf (0-5) H 01/14/22 18:33 Urine RBC (Auto) 0-4 /hpf (0-4) 01/14/22 18: U Hyaline Cast (Auto) 0 /lpf (0-5) 01/14/22 18: U Epithel Cells (Auto) 5-10 /lpf (0-5) H 01/14/22 18:33 Urine Bacteria (Auto) Negative (Negative) 01/14/22 18:33 Stl C. cayetanensis PCR Not Detected (NotDetected) 01/14/22 20:54 Stool Rotavirus A PCR Not Detected (NotDetected) 01/14/22 20:54 Stl Adenov F 40/41 PCR Not Detected (NotDetected) 01/14/22 20:54 Stool Astrovirus (PCR) Not Detected (NotDetected) 01/14/22 20:54 Stool Campylobacter PCR Not Detected (NotDetected) 01/14/22 20:54 Stl C. diff Tox B Gene Negative Cdiff Gene (Neg) 01/14/22 20:54 Stool Cryptosporidium PCR Not Detected (NotDetected) 01/14/22 20:54 Stl E.coli Shiga Tox PCR Not Detected (NotDetected) 01/14/22 20:54 Stl Enterotoxigenic E PCR Not Detected (NotDetected) 01/14/22 20:54 Stool EPEC (PCR) Not Detected (NotDetected) 01/14/22 20:54 Stool EAEC (PCR) Not Detected (NotDetected) 01/14/22 20:54 Stl E. histolytica PCR Not Detected (NotDetected) 01/14/22 20:54 Stool Giardia Lamblia PCR Not Detected (NotDetected) 01/14/22 20:54 Stool Salmonella PCR Not Detected (NotDetected) 01/14/22 20:54 Stool Sapovirus (PCR) Not Detected (NotDetected) 01/14/22 20:54 Stl P. shigelloides PCR Not Detected (NotDetected) 01/14/22 20:54 Stl Shigella/EIEC PCR Not Detected (NotDetected) 01/14/22 20:54 St Y.enterocolitica PCR Not Detected (NotDetected) 01/14/22 20:54 Stool Vibrio (PCR) Not Detected (NotDetected) 01/14/22 20:54 Stl Vibrio cholerae PCR Not Detected (NotDetected) 01/14/22 20:54 Stl Norovirus GI/GII PCR Not Detected (NotDetected) 01/14/22 20:54 SARS-CoV-2 (PCR) NEGATIVE (Negative) 01/14/22 18:33 Influenza Type A (PCR) Negative (Neg) 01/14/22 18:33 Influenza Type B (PCR) Negative (Neg) 01/14/22 18:33 RSV (RT-PCR) Negative (Neg) 01/14/22 18:33 Impressions Chest X-Ray 01/14/22 18:17 XR chest 1V portable HISTORY: Fever. COMPARISON: Chest 03/08/2021. FINDINGS: No pneumothorax. No pleural effusions. The cardiac silhouette remains borderline enlarged. There is mild elevation of the right hemidiaphragm, unchanged. Right greater than left interstitial/vascular thickening suggestive of mild congestive change. Patchy right basilar densities could be due to the asymmetric congestive change or a developing pneumonitis. IMPRESSION: Right greater than left interstitial/vascular thickening suggestive of mild asymmetric congestive change. Patchy right basilar densities could be due to the asymmetric congestive change or a developing pneumonitis. ACT 112: Negative or not required by law. Electronically signed by: Pan Sawyer M.D. 01/14/2022 8:23 PM Code Status & VTE Plan VTE Prophylaxis Plan VTE Prophylaxis will be ordered: Yes PG Care Time/CCT Total # of Minutes Spent Total Time Spent with Patient: Total time spent is greater than 50% in coordination of care (as documented) at patient's floor/unit and/or counseling patient: Coding Level of Care Code INT OBSERVATION CARE 50M LVL 2 Diagnoses Ulcerative colitis K51.90 AAA (abdominal aortic aneurysm) I71.4 COPD (chronic obstructive pulmonary disease) J44.9 GERD (gastroesophageal reflux disease) K21.9
[2022-01-14 23:01] LABS: Adenovirus F 40/41 PCR Not Detected (NotDetected); Astrovirus PCR Not Detected (NotDetected); Campylobacter PCR Not Detected (NotDetected); Cryptosporidium PCR Not Detected (NotDetected); Cyclospora cayetanensis PCR Not Detected (NotDetected); Entamoeba histolytica PCR Not Detected (NotDetected); Enteroaggregative E.coli(EAEC) Not Detected (NotDetected); Enteropathogenic E.coli (EPEC) Not Detected (NotDetected); Enterotoxigenic E.coli (ETEC) Not Detected (NotDetected); Giardia lamblia PCR Not Detected (NotDetected); Norovirus GI/GII PCR Not Detected (NotDetected); Plesiomonas shigelloides PCR Not Detected (NotDetected); Rotavirus A PCR Not Detected (NotDetected); Salmonella PCR Not Detected (NotDetected); Sapovirus PCR Not Detected (NotDetected); Shiga-like Toxin E.coli (STEC) Not Detected (NotDetected); Shigella/Enteroinvasive E.coli Not Detected (NotDetected); Vibrio cholerae PCR Not Detected (NotDetected); Vibrio species PCR Not Detected (NotDetected); Yersinia enterocolitica PCR Not Detected (NotDetected)
[2022-01-14] MEDS ORDERED: ONDANSETRON INJ 2 MG/ML 2 ML VIAL IV PRN (23:55)
[2022-01-14] MEDS ORDERED: ACETAMINOPHEN 325 MG TAB PO PRN (23:55)
[2022-01-14] MEDS ORDERED: LACTATED RINGER'S 1,000 ML IV SCH (23:55)
[2022-01-15] MEDS: PIPERACILLIN/TAZOBACTAM 3.375 GM in DEXTROSE 5% 100 ML IV SCH ×3 (04:19→21:30)
[2022-01-15 06:41] LABS: Hematocrit (blood only) 33.9 % (40.1-51.0); Hemoglobin 11.2 g/dl (14.0-18.0); Mean Corpuscular Volume 93.9 fL (80.0-100.0); Mean Platelet Volume 9.8 fL (9.4-12.4); Platelet Count 215 K/uL (130-400); RDW Coefficient of Variation 12.6 % (11.5-14.5); RDW Standard Deviation 43.6 fL (36.4-46.3); Red Blood Count 3.61 M/uL (4.63-6.08)
[2022-01-15 07:09] LABS: BUN Creatinine Ratio 14.6 (10-20); Calcium 8.2 mg/dl (8.5-10.1); Creatinine Clr Calc Pharmacy 58.7 ml/min; Est GFR (African American) 93.6 ml/min; Est GFR (Non-African American) 80.8 ml/min; Potassium 3.6 mmol/L (3.5-5.1)
[2022-01-15] MEDS: CETIRIZINE HCL 10 MG TABLET PO SCH (08:13)
[2022-01-15] MEDS: PANTOprazole 40 MG TAB PO SCH (08:13)
[2022-01-15] MEDS: MESALAMINE 800 MG TABCR PO SCH ×3 (08:13→21:31)
[2022-01-15] MEDS: QUEtiapine FUMARATE 25 MG TABLET PO SCH ×2 (08:14→21:31)
[2022-01-15] MEDS ORDERED: FAMOTIDINE 40 MG TABLET PO SCH (09:00)
--- NOTE | 2022-01-15 09:09 | Gastrointestinal Consultation ---
Date of Consultation January 15, 2022 Assessment & Plan (1) Acute lower GI bleedin81 year old male with UC, recent transition of care to [facility] presenting with abd pain, nausea/vomiting worsening diarrhea w/ rectal bleeding and fevers at home. Stool studies negative Arrange CT abd/pelvis given report of pain, nausea/vomiting and fevers at home Pt notes that he does not tolerate steroids well, will hold for now Can continue clear liquids as tolerated today NPO after midnight Pending results of CT scan, consider colonoscopy Wednesday History of Present Illness Reason for Consultation: diarrhea, rectal bleeding Requesting Physician: Feli Attending Physician: Keyshawn Edmond MD History of Present Illness 81 year old male, recent transition of IBD care to [facility] admitted through the ED with report of fevers, nausea/vomiting, diarrhea and inability to tolerate PO intake at home. GI asked to evaluate. He is somewhat of a poor historian. He notes he has had progressively worsening symptoms. This week at some point developed nausea/vomiting and worsening diarrhea w/ rectal bleeding. He suggest his appetite has been decreased as well. He notes yesterday or the day before, he had a fever at home around 102. No CP, SOB Last colon in 2019, proctosigmoid UC. Has been maintained on Lialda. Allergies Allergy/AdvReac Type Severity Reaction Status Date / Time No Known Allergies Allergy Verified 01/14/22 19:30 Home Medications Medication Instructions Recorded Confirmed Type cetirizine 10 mg tablet (Zyrtec) 10 mg PO QAM 09/05/18 01/14/22 History mesalamine 1.2 gram tablet,delayed 2.4 g PO BID 90 days #360 tabs 10/23/21 01/14/22 Rx release (Lialda) quetiapine 25 mg tablet (Seroquel) 25 mg PO BID #30 tabs 12/04/21 01/14/22 Rx omeprazole 20 mg capsule,delayed 20 mg PO QAM #90 caps 12/31/21 01/14/22 Rx release Patient History Medical History AAA (abdominal aortic aneurysm) PCP monitors - last ultrasound approx [address] scan, gallbladder Chronic lower back pain COPD (chronic obstructive pulmonary disease) no inhaler Dyslipidemia 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 GERD (gastroesophageal reflux disease) Hiatal hernia Schatzki's ring Traumatic blindness of right eye Surgical History H/O sinus surgery History of colonoscopy History of esophagogastroduodenoscopy (EGD) Family History Mother Acute myocardial infarction Cerebral aneurysm Sister COPD (chronic obstructive pulmonary disease) Unknown Cardiovascular disease Son Diabetes Brother Acute myocardial infarction Other No family history of adverse response to anesthesia Denies family history of Ovarian cancer Prostate cancer Myocardial infarction Breast cancer Lung cancer Colorectal cancer Stroke Social History Smoking Status: Former smoker Tobacco Type: Smokeless Tobacco (Dip or Chew) Second Hand Exposure: No; Do You Dip or Chew Tobacco: Yes; Hx Alcohol Use: No Hx Substance Use: No Preferred Language: Nigerien Communication Ability: Effective Visual Impairment: Limited Hearing Ability: Normal Tape Controlled Machine Stitcher Required: No Beliefs That Will Affect Care: None marital status: Current Living Situation: Spouse Current Living Situation Comment: Lives at home with Karrie current occupational status: retired How many Children do You have: 3 Other Information That Helps Us Care for You: No Feels Safe at Home: Yes Safety Concerns: Feels Safe At This Time Childhood Exposure to Second-Hand Smoke: No caffeine: Yes (coffee and tea ) Dental Care, Regularly: No Physical Activity Frequency: 3-4 Times per Week Physical Activity Frequency Comment: goes on walks Seatbelt Use: always Sunscreen Use: No Assistive Devices: Denture - Upper and Glasses Review of Systems Review of Systems: All systems reviewed & are unremarkable except as noted in HPI & below Physical Exam Respiratory: normal respiratory effort, lungs clear to auscultation Cardiovascular: Rate/Rhythm: regular rate and regular rhythm Gastrointestinal (Abdomen): Inspection/Auscultation: abdomen normal to inspection and normal bowel sounds Percussion/Palpation: + abdomen tender and abdomen soft; no guarding and abdomen not rigid Skin: no rashes, warm and dry Results & Data ([facility]) Vital Signs (Past 12 Hours) Vital Signs Temp Pulse Pulse Resp BP Pulse Ox O2 Del Method 01/15/22 07:41 36.6 C 61 18 117/64 94 Room Air 01/15/22 03:36 36.5 C 67 18 108/62 94 Room Air 01/15/22 01:37 Room Air 01/15/22 01:36 78 01/14/22 23:57 36.5 C 70 18 114/71 95 Room Air 01/14/22 23:56 36.5 C 70 18 114/71 95 Room Air 01/14/22 22:00 73 18 118/62 95 Room Air Laboratory Results 01/15/22 01/15/22 01/14/22 Range/Units 06:26 06:26 20:54 WBC 5.00 (4.8-10.8) K/ul RBC 3.61 L (4.63-6.08) M/uL Hgb 11.2 L (14.0-18.0) g/dl Hct 33.9 L (40.1-51.0) % MCV 93.9 (80.0-100.0) fL MCH 31.0 (25.0-34.0) pg MCHC 33.0 (32.0-36.0) g/dL RDW Std Deviation 43.6 (36.4-46.3) fL RDW Coeff of Waleska 12.6 (11.5-14.5) % Plt Count 215 (130-400) K/uL MPV 9.8 (9.4-12.4) fL Immature Gran % (Auto) % Neut % (Auto) % Lymph % (Auto) % Bartholomew % (Auto) % Eos % (Auto) % Baso % (Auto) % Neut # (Auto) (1.4-6.5) K/uL Lymph # (Auto) (1.2-3.4) K/uL Bartholomew # (Auto) (0.24-0.82) K/uL Eos # (Auto) (0-0.50) K/uL Baso # (Auto) (0-0.2) K/uL Immature Gran # (Auto) (0.00-0.02) K/uL ESR (0-20) mm/hr Sodium 139 (136-145) mmol/L Potassium 3.6 (3.5-5.1) mmol/L Chloride 109 H (98-107) mmol/L Carbon Dioxide 26 (21-32) mmol/L Anion Gap 4 (3-11) BUN 13 (6-23) mg/dl Creatinine 0.89 (0.6-1.4) mg/dl Est Cr Clr Drug Dosing 58.7 ml/min Est GFR ( Amer) 93.6 ml/min Est GFR (Non-Af Amer) 80.8 ml/min BUN/Creatinine Ratio 14.6 (10-20) Glucose 100 H (70-99(Fasting)) mg/dl Calcium 8.2 L (8.5-10.1) mg/dl Total Bilirubin (0.2-1.0) mg/dl AST (13-39) U/L ALT (7-52) U/L Alkaline Phosphatase (34-104) U/L C-Reactive Protein (0-0.5) mg/dl Total Protein (6.0-8.3) gm/dl Albumin (3.4-5.0) gm/dl Globulin (2.5-4.0) gm/dl Albumin/Globulin Ratio (0.9-2) Lipase (11-82) U/L Procalcitonin (0-0.5) ng/ml Urine Color Urine Appearance (Clear) Urine pH (4.5-7.5) Ur Specific [place] (1.000-1.030) Urine Protein (Negative) Urine Glucose (UA) (Negative) Urine Ketones (Negative) Urine Blood (Negative) Urine Nitrite (Negative) Urine Bilirubin (Negative) Urine Urobilinogen (Negative) Ur Leukocyte Esterase (Negative) Urine WBC (Auto) (0-5) /hpf Urine RBC (Auto) (0-4) /hpf U Hyaline Cast (Auto) (0-5) /lpf U Epithel Cells (Auto) (0-5) /lpf Urine Bacteria (Auto) (Negative) Stl C. cayetanensis PCR Not Detected (NotDetected) Stool Rotavirus A PCR Not Detected (NotDetected) Stl Adenov F 40/41 PCR Not Detected (NotDetected) Stool Astrovirus (PCR) Not Detected (NotDetected) Stool Campylobacter PCR Not Detected (NotDetected) Stl C. diff Tox B Gene Negative Cdiff Gene (Neg) Stool Cryptosporidium PCR Not Detected (NotDetected) Stl E.coli Shiga Tox PCR Not Detected (NotDetected) Stl Enterotoxigenic E PCR Not Detected (NotDetected) Stool EPEC (PCR) Not Detected (NotDetected) Stool EAEC (PCR) Not Detected (NotDetected) Stl E. histolytica PCR Not Detected (NotDetected) Stool Giardia Lamblia PCR Not Detected (NotDetected) Stool Salmonella PCR Not Detected (NotDetected) Stool Sapovirus (PCR) Not Detected (NotDetected) Stl P. shigelloides PCR Not Detected (NotDetected) Stl Shigella/EIEC PCR Not Detected (NotDetected) St Y.enterocolitica PCR Not Detected (NotDetected) Stool Vibrio (PCR) Not Detected (NotDetected) Stl Vibrio cholerae PCR Not Detected (NotDetected) Stl Norovirus GI/GII PCR Not Detected (NotDetected) SARS-CoV-2 (PCR) (Negative) Influenza Type A (PCR) (Neg) Influenza Type B (PCR) (Neg) RSV (RT-PCR) (Neg) 01/14/22 01/14/22 01/14/22 Range/Units 18:33 18:33 18:33 WBC (4.8-10.8) K/ul RBC (4.63-6.08) M/uL Hgb (14.0-18.0) g/dl Hct (40.1-51.0) % MCV (80.0-100.0) fL MCH (25.0-34.0) pg MCHC (32.0-36.0) g/dL RDW Std Deviation (36.4-46.3) fL RDW Coeff of Waleska (11.5-14.5) % Plt Count (130-400) K/uL MPV (9.4-12.4) fL Immature Gran % (Auto) % Neut % (Auto) % Lymph % (Auto) % Bartholomew % (Auto) % Eos % (Auto) % Baso % (Auto) % Neut # (Auto) (1.4-6.5) K/uL Lymph # (Auto) (1.2-3.4) K/uL Bartholomew # (Auto) (0.24-0.82) K/uL Eos # (Auto) (0-0.50) K/uL Baso # (Auto) (0-0.2) K/uL Immature Gran # (Auto) (0.00-0.02) K/uL ESR (0-20) mm/hr Sodium (136-145) mmol/L Potassium (3.5-5.1) mmol/L Chloride (98-107) mmol/L Carbon Dioxide (21-32) mmol/L Anion Gap (3-11) BUN (6-23) mg/dl Creatinine (0.6-1.4) mg/dl Est Cr Clr Drug Dosing ml/min Est GFR ( Amer) ml/min Est GFR (Non-Af Amer) ml/min BUN/Creatinine Ratio (10-20) Glucose (70-99(Fasting)) mg/dl Calcium (8.5-10.1) mg/dl Total Bilirubin (0.2-1.0) mg/dl AST (13-39) U/L ALT (7-52) U/L Alkaline Phosphatase (34-104) U/L C-Reactive Protein (0-0.5) mg/dl Total Protein (6.0-8.3) gm/dl Albumin (3.4-5.0) gm/dl Globulin (2.5-4.0) gm/dl Albumin/Globulin Ratio (0.9-2) Lipase (11-82) U/L Procalcitonin 2.34 H (0-0.5) ng/ml Urine Color Yellow Urine Appearance Clear (Clear) Urine pH 5.0 (4.5-7.5) Ur Specific [place] 1.022 (1.000-1.030) Urine Protein Trace H (Negative) Urine Glucose (UA) Negative (Negative) Urine Ketones Trace H (Negative) Urine Blood Negative (Negative) Urine Nitrite Negative (Negative) Urine Bilirubin Negative (Negative) Urine Urobilinogen Negative (Negative) Ur Leukocyte Esterase Trace H (Negative) Urine WBC (Auto) 5-10 H (0-5) /hpf Urine RBC (Auto) 0-4 (0-4) /hpf U Hyaline Cast (Auto) 0 (0-5) /lpf U Epithel Cells (Auto) 5-10 H (0-5) /lpf Urine Bacteria (Auto) Negative (Negative) Stl C. cayetanensis PCR (NotDetected) Stool Rotavirus A PCR (NotDetected) Stl Adenov F 40/41 PCR (NotDetected) Stool Astrovirus (PCR) (NotDetected) Stool Campylobacter PCR (NotDetected) Stl C. diff Tox B Gene (Neg) Stool Cryptosporidium PCR (NotDetected) Stl E.coli Shiga Tox PCR (NotDetected) Stl Enterotoxigenic E PCR (NotDetected) Stool EPEC (PCR) (NotDetected) Stool EAEC (PCR) (NotDetected) Stl E. histolytica PCR (NotDetected) Stool Giardia Lamblia PCR (NotDetected) Stool Salmonella PCR (NotDetected) Stool Sapovirus (PCR) (NotDetected) Stl P. shigelloides PCR (NotDetected) Stl Shigella/EIEC PCR (NotDetected) St Y.enterocolitica PCR (NotDetected) Stool Vibrio (PCR) (NotDetected) Stl Vibrio cholerae PCR (NotDetected) Stl Norovirus GI/GII PCR (NotDetected) SARS-CoV-2 (PCR) NEGATIVE (Negative) Influenza Type A (PCR) Negative (Neg) Influenza Type B (PCR) Negative (Neg) RSV (RT-PCR) Negative (Neg) 01/14/22 01/14/22 01/14/22 Range/Units 18:33 18:33 18:33 WBC 7.94 (4.8-10.8) K/ul RBC 4.24 L (4.63-6.08) M/uL Hgb 13.1 L (14.0-18.0) g/dl Hct 39.0 L (40.1-51.0) % MCV 92.0 (80.0-100.0) fL MCH 30.9 (25.0-34.0) pg MCHC 33.6 (32.0-36.0) g/dL RDW Std Deviation 42.7 (36.4-46.3) fL RDW Coeff of Waleska 12.7 (11.5-14.5) % Plt Count 257 (130-400) K/uL MPV 10.3 (9.4-12.4) fL Immature Gran % (Auto) 0.4 % Neut % (Auto) 69.4 % Lymph % (Auto) 19.6 % Bartholomew % (Auto) 10.2 % Eos % (Auto) 0.0 % Baso % (Auto) 0.4 % Neut # (Auto) 5.51 (1.4-6.5) K/uL Lymph # (Auto) 1.56 (1.2-3.4) K/uL Bartholomew # (Auto) 0.81 (0.24-0.82) K/uL Eos # (Auto) 0.00 (0-0.50) K/uL Baso # (Auto) 0.03 (0-0.2) K/uL Immature Gran # (Auto) 0.03 H (0.00-0.02) K/uL ESR 68 H (0-20) mm/hr Sodium 135 L (136-145) mmol/L Potassium 3.9 (3.5-5.1) mmol/L Chloride 103 (98-107) mmol/L Carbon Dioxide 26 (21-32) mmol/L Anion Gap 6 (3-11) BUN 23 (6-23) mg/dl Creatinine 1.09 (0.6-1.4) mg/dl Est Cr Clr Drug Dosing 47.6 ml/min Est GFR ( Amer) 73.9 ml/min Est GFR (Non-Af Amer) 63.8 ml/min BUN/Creatinine Ratio 21.1 H (10-20) Glucose 119 H (70-99(Fasting)) mg/dl Calcium 8.9 (8.5-10.1) mg/dl Total Bilirubin 0.7 (0.2-1.0) mg/dl AST 20 (13-39) U/L ALT 16 (7-52) U/L Alkaline Phosphatase 72 (34-104) U/L C-Reactive Protein 16.77 H (0-0.5) mg/dl Total Protein 7.6 (6.0-8.3) gm/dl Albumin 3.6 (3.4-5.0) gm/dl Globulin 4.0 (2.5-4.0) gm/dl Albumin/Globulin Ratio 0.9 (0.9-2) Lipase 46 (11-82) U/L Procalcitonin (0-0.5) ng/ml Urine Color Urine Appearance (Clear) Urine pH (4.5-7.5) Ur Specific [place] (1.000-1.030) Urine Protein (Negative) Urine Glucose (UA) (Negative) Urine Ketones (Negative) Urine Blood (Negative) Urine Nitrite (Negative) Urine Bilirubin (Negative) Urine Urobilinogen (Negative) Ur Leukocyte Esterase (Negative) Urine WBC (Auto) (0-5) /hpf Urine RBC (Auto) (0-4) /hpf U Hyaline Cast (Auto) (0-5) /lpf U Epithel Cells (Auto) (0-5) /lpf Urine Bacteria (Auto) (Negative) Stl C. cayetanensis PCR (NotDetected) Stool Rotavirus A PCR (NotDetected) Stl Adenov F 40/41 PCR (NotDetected) Stool Astrovirus (PCR) (NotDetected) Stool Campylobacter PCR (NotDetected) Stl C. diff Tox B Gene (Neg) Stool Cryptosporidium PCR (NotDetected) Stl E.coli Shiga Tox PCR (NotDetected) Stl Enterotoxigenic E PCR (NotDetected) Stool EPEC (PCR) (NotDetected) Stool EAEC (PCR) (NotDetected) Stl E. histolytica PCR (NotDetected) Stool Giardia Lamblia PCR (NotDetected) Stool Salmonella PCR (NotDetected) Stool Sapovirus (PCR) (NotDetected) Stl P. shigelloides PCR (NotDetected) Stl Shigella/EIEC PCR (NotDetected) St Y.enterocolitica PCR (NotDetected) Stool Vibrio (PCR) (NotDetected) Stl Vibrio cholerae PCR (NotDetected) Stl Norovirus GI/GII PCR (NotDetected) SARS-CoV-2 (PCR) (Negative) Influenza Type A (PCR) (Neg) Influenza Type B (PCR) (Neg) RSV (RT-PCR) (Neg)
[2022-01-15] MEDS ORDERED: OPTIRAY 350 100ml IV ONE (12:36)
--- NOTE | 2022-01-15 14:09 | Hospitalist Progress Note ---
Date of Service January 15, 2022 Assessment & Plan (1) Ulcerative colitis: Plan: Currently on higher than usual dose mesalamine. He is intolerant of intravenous steroids which will be avoided. GI consult appreciated. Abdominal CT scan today, January 15. Possible colonoscopy tomorrow, January 16 . Continue intravenous Zosyn for now (2) AAA (abdominal aortic aneurysm): Plan: US from 12/01/21 revealed aneurysm of distal abdominal aorta measuring 4.9 x 5.1cm with mural thrombus. This has increased in size from study 03/07/20 (US from 03/07/20 revealed 42mm infrarenal abdominal aortic aneurysm. No clinical suggestion of bleeding or rupture. Patient is scheduled to see Vascular Surgery on 02/03/22 to discuss elective repair (3) COPD (chronic obstructive pulmonary disease): Plan: Patient denies cough, SOB or wheeze. No use of home O2. No wheeze noted on exam. Stable (4) GERD (gastroesophageal reflux disease): Plan: Chronic. Patient on Omeprazole 20mg po qAM at home. Protonix p.o. daily for now Plan Anticipate eventual discharge to home Admission and Anticipated Discharge Date Admission Date: January 14, 2022 Subjective Alert and oriented. He states he is going to go home tomorrow no matter what. He is willing to stay for his possible colonoscopy pending CT scan results. No acute distress. Daughter is at the bedside. Appreciate GI consult and recommendations. Hemoglobin down slightly to 11.2. We will follow again tomorrow Review of Systems Review of Systems: Constitutional-no fever or chills ENT-no blurred vision, no double vision, no epistaxis, no sore throat Respiratory-no cough, no wheezing, no shortness of breath Cardiac-no palpitations, no chest pain, no syncope GI-no nausea, vomiting, diarrhea, melena. Intermittent hematochezia noted -no urinary retention, no urinary incontinence, no dysuria, no hematuria Musculoskeletal-no joint pain, no muscle tenderness Skin-no bruising, no rashes, no pruritus Neuro-no isolated weakness, no paresthesia, no weakness Psych-no depression, no anxiety Physical Exam Physical Exam: General-alert and oriented x3, no fevers, no chills HEENT-head atraumatic and normocephalic, pupils equal and reactive to light, e xtraocular muscles intact Neck-no lymphadenopathy or thyromegaly, trachea midline Chest-clear to auscultation percussion. No rales wheezing or rhonchi Cardiac-regular rate and rhythm, normal S1 and S2, no murmurs Abdomen-normal bowel sounds, nontender, no hepatosplenomegaly Extremities-no cyanosis, clubbing, or edema Neuro-cranial nerves II through XII intact, motor and sensory function within no rmal limits, strength symmetrical , no focal deficits Psych-normal affect, normal mood Results & Data Results & Data ([facility]) Vital Signs (Past 12 Hours) Vital Signs Temp Pulse Pulse Resp BP Pulse Ox O2 Del Method 01/15/22 08:00 63 01/15/22 07:41 36.6 C 61 18 117/64 94 Room Air 01/15/22 03:36 36.5 C 67 18 108/62 94 Room Air Laboratory Results 01/15/22 06:26 01/15/22 06:26 PG Care Time/CCT Total # of Minutes Spent Total Time Spent with Patient: Total time spent is greater than 50% in coordination of care (as documented) at patient's floor/unit and/or counseling patient: Coding Level of Care Code 44696 Subseq Hosp Care Lvl 3 Diagnoses Ulcerative colitis K51.90 AAA (abdominal aortic aneurysm) I71.4 COPD (chronic obstructive pulmonary disease) J44.9 GERD (gastroesophageal reflux disease) K21.9
[2022-01-16] MEDS: PIPERACILLIN/TAZOBACTAM 3.375 GM in DEXTROSE 5% 100 ML IV SCH (04:03)
[2022-01-16 06:48] LABS: Basophils # (auto) 0.04 K/uL (0-0.2); Basophils % (auto) 0.9 %; Hematocrit (blood only) 35.5 % (40.1-51.0); Hemoglobin 11.5 g/dl (14.0-18.0); Immature Granulocytes # (auto) 0.01 K/uL (0.00-0.02); Immature Granulocytes % (auto) 0.2 %; Lymphocytes # (auto) 1.01 K/uL (1.2-3.4); Lymphocytes % (auto) 21.6 %; Mean Corpuscular Hemoglobin 30.3 pg (25.0-34.0); Mean Corpuscular Hgb Conc 32.4 g/dL (32.0-36.0); Mean Corpuscular Volume 93.7 fL (80.0-100.0); Monocytes # (auto) 0.63 K/uL (0.24-0.82); Monocytes % (auto) 13.5 %; Neutrophils # (auto) 2.98 K/uL (1.4-6.5); Neutrophils % (auto) 63.8 %; Platelet Count 266 K/uL (130-400); RDW Coefficient of Variation 12.5 % (11.5-14.5); RDW Standard Deviation 43.4 fL (36.4-46.3); Red Blood Count 3.79 M/uL (4.63-6.08); White Blood Count 4.67 K/ul (4.8-10.8)
[2022-01-16 07:04] LABS: BUN Creatinine Ratio 7.3 (10-20); Calcium 8.3 mg/dl (8.5-10.1); Creatinine Clr Calc Pharmacy 52.3 ml/min; Est GFR (African American) 86.2 ml/min; Est GFR (Non-African American) 74.4 ml/min; Potassium 3.6 mmol/L (3.5-5.1)
[2022-01-16] MEDS: QUEtiapine FUMARATE 25 MG TABLET PO SCH (08:29)
[2022-01-16] MEDS: CETIRIZINE HCL 10 MG TABLET PO SCH (08:30)
[2022-01-16] MEDS: PANTOprazole 40 MG TAB PO SCH (08:30)
[2022-01-16] MEDS: MESALAMINE 800 MG TABCR PO SCH (08:30)
--- NOTE | 2022-01-16 08:35 | Gastroenterology Progress Note ---
Date of Service January 16, 2022 Assessment & Plan (1) Acute lower GI bleeding: Plan: 81 year old male with UC, recent transition of care to [facility] presenting with abd pain, nausea/vomiting worsening diarrhea w/ rectal bleeding and fevers at home. CT pending. Stool studies negative Follow up CT Continue home dose of mesalamine at discharge Pt notes that he does not tolerate steroids well, will hold for now Can advance diet as tolerated Recommended admission through the weekend for colonoscopy Wednesday, he notes he wishes to go home We will arrange OP colonoscopy, did inform patient that we are scheduling a few months out Thank you for allowing us to participate in the care of this patient. Please call with any acute changes, questions or concerns. Please see addendum below with additional recommendation from my supervising physician. Admission and Anticipated Discharge Date Admission Date: January 14, 2022 Supervising Physician Co-Signing Physician Notes I saw and evaluated the patient, we are planning to do outpatient colonoscopy as per recommendations from yesterday. The patient is new to our group and had previously been following with the [facility] physician group Practice. We would be useful to determine if the patient has active inflammatory changes may benefit from alteration of his present medical regimen. Subjective Pt was seen and evaluated, chart reviewed. Nursing at bedside. Pt notes that he is feeling well. Afebrile No abd pain, nausea/vomiting reported. No further epigastric of diarrhea, last BM was [address]: pending Review of Systems Review of Systems: All systems reviewed & are unremarkable except as noted in HPI & below Physical Exam Respiratory: normal respiratory effort, lungs clear to auscultation Cardiovascular: Rate/Rhythm: regular rate and regular rhythm Gastrointestinal (Abdomen): Inspection/Auscultation: abdomen normal to inspection and normal bowel sounds Percussion/Palpation: abdomen soft; abdomen nontender, no guarding and abdomen not rigid Skin: no rashes, warm and dry Results & Data ([facility]) Vital Signs (Past 12 Hours) Vital Signs Temp Pulse Pulse Resp BP Pulse Ox O2 Del Method 01/16/22 06:39 36.8 C 85 20 149/88 H 97 Room Air 01/16/22 02:36 36.5 C 64 18 110/62 94 Room Air 01/15/22 23:22 63 01/15/22 22:27 36.7 C 70 18 118/63 94 Room Air Laboratory Results 01/16/22 01/16/22 Range/Units 06:19 06:19 WBC 4.67 L (4.8-10.8) K/ul RBC 3.79 L (4.63-6.08) M/uL Hgb 11.5 L (14.0-18.0) g/dl Hct 35.5 L (40.1-51.0) % MCV 93.7 (80.0-100.0) fL MCH 30.3 (25.0-34.0) pg MCHC 32.4 (32.0-36.0) g/dL RDW Std Deviation 43.4 (36.4-46.3) fL RDW Coeff of Wales[place] 12.5 (11.5-14.5) % Plt Count 266 (130-400) K/uL MPV 10.0 (9.4-12.4) fL Immature Gran % (Auto) 0.2 % Neut % (Auto) 63.8 % Lymph % (Auto) 21.6 % Morris % (Auto) 13.5 % Eos % (Auto) 0.0 % Baso % (Auto) 0.9 % Neut # (Auto) 2.98 (1.4-6.5) K/uL Lymph # (Auto) 1.01 L (1.2-3.4) K/uL Morris # (Auto) 0.63 (0.24-0.82) K/uL Eos # (Auto) 0.00 (0-0.50) K/uL Baso # (Auto) 0.04 (0-0.2) K/uL Immature Gran # (Auto) 0.01 (0.00-0.02) K/uL Sodium 139 (136-145) mmol/L Potassium 3.6 (3.5-5.1) mmol/L Chloride 107 (98-107) mmol/L Carbon Dioxide 27 (21-32) mmol/L Anion Gap 5 (3-11) BUN 7 (6-23) mg/dl Creatinine 0.96 (0.6-1.4) mg/dl Est Cr Clr Drug Dosing 52.3 ml/min Est GFR ( Amer) 86.2 ml/min Est GFR (Non-Af Amer) 74.4 ml/min BUN/Creatinine Ratio 7.3 L (10-20) Glucose 98 (70-99(Fasting)) mg/dl Calcium 8.3 L (8.5-10.1) mg/dl
--- NOTE | 2022-01-16 10:01 | CT Scan Report ---
CT abd pelvis oral and IV con CLINICAL HISTORY: history of UC, fevers at home, n/v/d TECHNIQUE: Helical axial images of the abdomen and pelvis were obtained and displayed. Automated dose lowering techniques and/or adjustment according to patient size were utilized for this exam. This e xam was performed with intravenous contrast. CT DOSE: 309.01 mGy.cm COMPARISON: Comparison is made to CT abdomen pelvis 01/21/2020 FINDINGS: Lower chest: Bronchial wall thickening, bronchiectasis and consolidation noted in the right lower lo be. Moderate atherosclerotic disease is seen. Liver: Unremarkable. No focal lesions are seen. Gallbladder and biliary tree: A phrygian cap is incidentally noted. Gallbladder is otherwise unremark able. No intra- or extrahepatic biliary ductal dilation. Pancreas: Unremarkable, no focal lesions. Spleen: Unremarkable. Adrenals: Unremarkable. Kidneys and ureters: Atrophy of the left kidney is again seen. Bladder: Diffuse homogeneous wall thickening is seen. Reproductive organs: Prostatomegaly is seen. Bowel: Diverticulosis is seen without evidence of diverticulitis. Thickening of the rectal wall is no bobby. Lymph nodes Retroperitoneal: Unremarkable. Pelvic: Unremarkable. Mesenteric: Unremarkable. Peritoneum: Normal. Vessels: Infrarenal abdominal aortic aneurysm measures up to 46 mm in diameter, slightly increased fr om prior exam where it measured 43 mm. Abdominal wall: Unremarkable. Bones: Degenerative changes in the visualized spine. IMPRESSION: 1. Thickening of the rectal davidson can be seen in infectious/inflammatory disease such as active ulce rative colitis. 2. Minimal interval increase in infrarenal abdominal aortic aneurysm. 3. Left renal scarring again noted. ACT 112: Negative or not required by law. Electronically signed by: Jerome Grier M.D. 01/16/2022 9:59 AM
--- NOTE | 2022-01-16 10:34 | Discharge Summary ---
Date of Service January 16, 2022 Admission HPI Per Admitting Provider Daniel Armstrong is a pleasant 81yo male with history of Ulcerative Colitis on Mesalamine presenting with frequent bloody BMs. Patient reports progression of his symptoms over the last several weeks with acute worsening over the last week. He reports a lot of gas and bloating and is having over 15 stools daily - small volume, liquid stool with bright red blood. Yesterday he had a brief episode of fever to 101 as well as chills, nausea and vomiting. He denies chest pain, pressure, palpitations, cough, SOB, abdominal pain, dysuria or rash. No additional complaints at this time. Patient has been on Prednisone in the past for UC flare but develops some forgetfulness, poor sleep and behavioral changes. Patient follows with GI. Recently transitioned to Dr. Kitchen. He was being scheduled for an outpatient colonoscopy. However, patient with AAA measuring 4.9 x 5.1cm, therefore, inpatient procedure followed by hospital observation is preferred. He has an appointment with Dr. Roach on 02/03/22 for evaluation for elective repair. In the ER he is afebrile, HD stable, NAD. ER Course: Zosyn NSS Principal Diagnosis Acute exacerbation ulcerative colitis, acute blood loss anemia Discharge Exam General-alert and oriented x3, no fevers, no chills HEENT-head atraumatic and normocephalic, pupils equal and reactive to light, extraocular muscles intact Neck-no lymphadenopathy or thyromegaly, trachea midline Chest-clear to auscultation percussion. No rales wheezing or rhonchi Cardiac-regular rate and rhythm, normal S1 and S2, no murmurs Abdomen-normal bowel sounds, nontender, no hepatosplenomegaly Extremities-no cyanosis, clubbing, or edema Neuro-cranial nerves II through XII intact, motor and sensory function within normal limits, strength symmetrical , no focal deficits Psych-normal affect, normal mood Discharge Data Allergies Allergy/AdvReac Type Severity Reaction Status Date / Time No Known Allergies Allergy Verified 01/14/22 19:30 Consultations 01/14/22 21:27 ED Decision to Admit Stat 01/14/22 23:55 Consult Gastroenterology Routine Procedures Performed Operation Date: 01/16/22 16:15 <No data on this case meets the specified criteria> Ordered Studies 01/15/22 09:33 CT Abd and Pelvis [CT abd pelvis oral and IV con] Routine Hospital Course (1) Ulcerative colitis: Treated with higher than usual dose mesalamine. He is intolerant of intravenous steroids which will be avoided. GI consult appreciated. Abdominal CT scan report noted. Colonoscopy will be done as an outpatient for GI. Zosyn has been discontinued. Diet has been advanced. (2) AAA (abdominal aortic aneurysm): US from 12/01/21 revealed aneurysm of distal abdominal aorta measuring 4.9 x 5.1cm with mural thrombus. This has increased in size from study 03/07/20 (US from 03/07/20 revealed 42mm infrarenal abdominal aortic aneurysm. No clinical suggestion of bleeding or rupture. Patient is scheduled to see Vascular Surgery on 02/03/22 to discuss elective repair (3) COPD (chronic obstructive pulmonary disease): Patient denies cough, SOB or wheeze. No use of home O2. No wheeze noted on exam. Stable (4) GERD (gastroesophageal reflux disease): Chronic. Patient on Omeprazole 20mg po qAM at home. Protonix p.o. daily for now Plan Discharge to home today, January 16 Total Time Total Time Spent Total Time Spent (In Minutes): 35 minutes Discharge Plan Discharge Items Patient Disposition: Home - Self-Care Reason For Visit: GIB Discharge Diagnosis: Acute exacerbation ulcerative colitis, acute blood loss anemia, lower GI bleeding Activity: Resume your previous activity Non-emergency contact: Primary Care Provider Call non-emergency contact if: you have any medication questions and your symptoms worsen Follow-up/Referrals: Simone Lomax MD [Primary Care Provider] - Diet: Other - See Diet Comment Diet Comment: Full liquid diet for 3 more days before resuming usual low-cholesterol diet Addtl Attending Provider Instructions: Mesalamine dosage is higher Pending Studies at Discharge: No Stand-Alone Forms: My Lore, Smoking Cessation Medications and DC Order Prescriptions: New mesalamine 800 mg Tablet,Delayed Release (Dr/Ec) 2,400 mg PO TID Qty: 100 0RF Continued quetiapine [Seroquel] 25 mg tablet 25 mg PO BID Qty: 30 3RF omeprazole 20 mg capsule,delayed release(DR/EC) 20 mg PO QAM Qty: 90 3RF cetirizine [Zyrtec] 10 mg Tablet 10 mg PO QAM Discontinued mesalamine [Lialda] 1.2 gram tablet,delayed release (DR/EC) 2.4 g PO BID 90 Days Qty: 360 3RF Discharge Orders: Discharge Order (Routine); Ordered 01/16/22 Ordered By: Keyshawn Edmond Admission Data Admit Date/Time: 01/14/22 22:02 Attending Provider: Keyshawn Edmond Admit Provider: Denise Chacon Primary Care Provider: Simone Lomax Other Providers: Denise Chacon ; Derick Kitchen Coding Level of Care Code D/C DAY MANAGEMENT >30 MINS Diagnoses Ulcerative colitis K51.90 AAA (abdominal aortic aneurysm) I71.4 COPD (chronic obstructive pulmonary disease) J44.9 GERD (gastroesophageal reflux disease) K21.9
[2022-01-16 16:28] LABS: A calco-baum cmplx NotReported Not Detected (NotDetected); Bact fragilis Not Reported Not Detected (NotDetected); C auris Not Reported Not Detected (NotDetected); Calbicans Not Reported Not Detected (NotDetected); Candida glabrata Not Reported Not Detected (NotDetected); Candida krusei Not Reported Not Detected (NotDetected); Cneoformans/gatti Not Reported Not Detected (NotDetected); Cparapsilosis Not Reported Not Detected (NotDetected); Ctropicalis Not Reported Not Detected (NotDetected); E cloacae compx Not Reported Not Detected (NotDetected); Efaecalis Not Reported Not Detected (NotDetected); Efaecium Not Reported Not Detected (NotDetected); Enterobacterales Not Reported Not Detected (NotDetected); Escherichia coli Not Reported Not Detected (NotDetected); H influenzae Not Reported Not Detected (NotDetected); K aerogenes Not Reported Not Detected (NotDetected); Koxytoca Not Reported Not Detected (NotDetected); Kpneumoniae grp Not Reported Not Detected (NotDetected); Lmonocyt Not Reported Not Detected (NotDetected); N meningitidis Not Reported Not Detected (NotDetected); P aeruginosa Not Reported Not Detected (NotDetected); Proteus spp Not Reported Not Detected (NotDetected); Salmonella spp Not Reported Not Detected (NotDetected); Smarcescens Not Reported Not Detected (NotDetected); Staph lugdunensis Not Reported Not Detected (NotDetected); Staphaureus Not Reported Not Detected (NotDetected); Staphepi Not Reported Not Detected (NotDetected); Stenmaltophilia Not Reported Not Detected (NotDetected); Strep agal(GrpB) Not Reported Not Detected (NotDetected); Strep pneum Not Reported Not Detected (NotDetected); Strep pyog (GrpA) Not Reported Not Detected (NotDetected); Strep spp Not Reported Not Detected (NotDetected)
[2022-01-16 16:43] LABS: Staph spp. Not Reported DETECTED (NotDetected); Staphylococcus spp. DETECTED (NotDetected)
== END 2022-01-16 12:55 | disposition home or self-care (01) ==
LOC: ED 17:56 → SUATTDRO 22:02 → 2W 22:02 → INTOOBSV 22:02 → 2W 23:24

== ENCOUNTER 2022-04-01 05:25 | Inpatient (IN) ==
--- NOTE | 2022-03-12 11:31 | PAT Medication Instructions ---
Medication Instructions Date of Service March 12, 2022 Home Medications Medication Instructions Recorded omeprazole 20 mg capsule,delayed 20 mg PO QAM #90 caps 12/31/21 release quetiapine 25 mg tablet (Seroquel) 25 mg PO BID #120 tabs 02/09/22 cetirizine 10 mg tablet (Zyrtec) 10 mg PO QAM omeprazole 20 mg capsule,delayed release 20 mg PO QAM quetiapine 25 mg tablet (Seroquel) 25 mg PO BID cholecalciferol (vitamin D3) 50 mcg (2,000 unit) tablet (Vitamin D3) 50 mcg PO QAM mesalamine 1.2 gram tablet,delayed release (Lialda) 2.4 g PO BID ASK your prescriber and surgeon quetiapine 25 mg tablet (Seroquel) 25 mg PO BID mesalamine 1.2 gram tablet,delayed release (Lialda) 2.4 g PO BID DO NOT take the morning of surgery cetirizine 10 mg tablet (Zyrtec) 10 mg PO QAM cholecalciferol (vitamin D3) 50 mcg (2,000 unit) tablet (Vitamin D3) 50 mcg PO QAM Take morning of surgery With a small sip of water, OTHERWISE NOTHING TO EAT OR DRINK AFTER MIDNIGHT: omeprazole 20 mg capsule,delayed release 20 mg PO QAM Other Notes If you have any questions please call us at [phone] or [phone] or [phone] or [phone]
--- NOTE | 2022-03-18 14:37 | Anesthesiology Consultation ---
Date of Service March 18, 2022 Assessment & Plan (1) Encounter for pre-operative examination: - COVID screening: Per assessment on 03/18: No known COVID-19 positive contacts or current COVID-19 related symptoms. Travel screen negative. Patient vaccinated. At surgeon discretion if preop Covid testing being done. - Case/echo findings reviewed with Dr. Justice. Mosqueda to proceed with given surgery as scheduled. Chart Review Chart Review: Acceptable Risk for Surgery and Patient seen in Pre Admission Testing Teaching & Discussion Pre-Anesthesia Teaching/Discussion Notes: Instructed NPO after midnight before surgery,except medications with 15 cc of water. Medication instructions provided according to the PAT guidelines. History Surgery Operation Date: 04/01/22 07:30 Proposed Procedures p Percutaneous Endovascular Aneurysm Repair Abdominal Aortic Aneurysm - Alber Roach MD Height/Weight Height: 5 ft 6.5 in Weight: 63.4 kg Allergies Allergy/AdvReac Type Severity Reaction Status Date / Time prednisone AdvReac Severe Severe Verified 03/16/22 13:55 delirium, encephalopathy Medications Home Medications Medication Instructions Recorded Confirmed Last Taken cetirizine 10 mg tablet (Zyrtec) 10 mg PO QAM 09/05/18 03/11/22 01/14/22 omeprazole 20 mg capsule,delayed 20 mg PO QAM #90 caps 12/31/21 03/11/22 01/14/22 release quetiapine 25 mg tablet (Seroquel) 25 mg PO BID #120 tabs 02/09/22 03/11/22 Unknown cholecalciferol (vitamin D3) 50 50 mcg PO QAM 03/11/22 03/11/22 Unknown mcg (2,000 unit) tablet (Vitamin D3) mesalamine 1.2 gram tablet,delayed 2.4 g PO BID 03/11/22 03/11/22 Unknown release (Lialda) Past Medical History Medical History AAA (abdominal aortic aneurysm) Infrarenal abdominal aortic aneurysm measures up to 46 mm in diameter per 01/15/22 CT Asthma Per records Confusion Encephalopathy episode 10/2021 following steroid treatment for ulcerative colitis per PCP office visit 12/2021, reason for Seroquel COPD (chronic obstructive pulmonary disease) Dyslipidemia 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 GERD (gastroesophageal reflux disease) Hiatal hernia Schatzki's ring Ulcerative colitis Vision abnormalities "Very blurry"/limited vision 2/2 remote trauma/injury Exercise / Class Metabolic Activity II 4-5 Yardwork/Stairs/Walk up hill (one FS (no CP, no SOB)) Past Family History Family History Mother Acute myocardial infarction Cerebral aneurysm Sister COPD (chronic obstructive pulmonary disease) Unknown Cardiovascular disease Son Diabetes Brother Acute myocardial infarction Other No family history of adverse response to anesthesia Denies family history of Ovarian cancer Prostate cancer Myocardial infarction Breast cancer Lung cancer Colorectal cancer Stroke Past Surgical History Surgical History H/O sinus surgery History of colonoscopy History of esophagogastroduodenoscopy (EGD) History of tooth extraction Past Anesthesia History No Hx of Anesthesia Complications and No Family Hx of Anesthesia Complications History of PONV No Hx of PONV and No Hx of Motion Sickness Social History Smoking Status: Former smoker tobacco type: cigarettes Do You Dip or Chew Tobacco: Yes (Advised none DOS) Smoking End Date: Quit 40+ year ago Hx Alcohol Use: No Hx Substance Use: No substance use type: does not use Review of Systems Patient denies chest pain, shortness of breath, dyspnea on exertion, fever, chills, cough, wheezing, palpitations. Physical Exam Vital Signs VITALS BP 148/69 P 75 TEMP 98.2 SP02 96%RA RESP 16 PHYSICAL Full cervical extension range of motion. Full TMJ range of motion. TMD 4 finger breaths Mallampati Score 2 Dentition: full upper dentures, several lower missing teeth Lungs: clear throughout to auscultation Cardiac: regular rate and rhythm, no murmurs noted Spine: normal Carotid arteries: negative bruit Extremities: no edema Lab Results Anesthesia Preop Results Results Anesthesia Widget: WBC 4.50 K/ul (4.8-10.8) L 03/18/22 Hgb 14.0 g/dl (14.0-18.0) 03/18/22 Hct 42.7 % (40.1-51.0) 03/18/22 Plt 252 K/uL (130-400) 03/18/22 Na 139 mmol/L (136-145) 03/18/22 K 4.3 mmol/L (3.5-5.1) 03/18/22 Cl 105 mmol/L (98-107) 03/18/22 CO2 31 mmol/L (21-32) 03/18/22 BUN 17 mg/dl (6-23) 03/18/22 Creat 0.89 mg/dl (0.6-1.4) 03/18/22 Glucose Level 94 mg/dl (70-99(Fasting)) 03/18/22 PT 10.9 Seconds (9.0-12.0) 03/18/22 PTT 29.9 Seconds (21.0-31.0) 03/18/22 INR 1.0 (0.9-1.1) 03/18/22 Blood Type A Positive 03/18/22 Antibody Screen NEGATIVE 03/18/22 Testing Electrocardiogram Date: 11/06/21 Sinus rhythm with PSVC's at 71 bpm. Otherwise normal ECG. Chest X-Ray Date: 03/18/22 Findings: + NAD Echocardiogram Date: 03/13/22 EF 45%. Global HK with mildly reduced LV systolic function. Grade I DD. Dilated aortic root (3.7cm) and ascending aorta (3.7cm). Trace to mild AI. No significant valvular disease. SR with frequent PVCs. Other Testing Abd/Pelvis CTA (01/14/22) Thickening of the rectal davidson can be seen in infectious/inflammatory disease such as active ulcerative colitis. Minimal interval increase in infrarenal abdominal aortic aneurysm. Infrarenal abdominal aortic aneurysm measures up to 46 mm in diameter, slightly increased from prior exam where it measured 43 mm. Left renal scarring again noted. COVID-19 Risk Screen Screening Information COVID-19 Screen Date: 03/18/22 Exposure 21 Days Family/Household +COVID Last 21 Days: No Exposure 10 Days Any COVID Exposure Last 10 Days: No Symptoms Last 10 Days Experienced COVID Sx Last 10 Days: No + COVID 0-90 Days COVID + in Last 0-90 Days: No
--- NOTE | 2022-03-31 15:52 | History & Physical Report ---
Date of Service March 31, 2022 History of Present Illness Primary Care Provider: Simone Lomax MD Name: JANINE NUNN Patient Number: [id number] : 1940 Date of Service: 03/05/2022 Chief Complaint: Abdominal aneurysm History of Present Illness: We had the pleasure of seeing your patient Mr. Nunn in our Vascular Surgery clinic at our [facility] office today. As you well know he is a very pleasant 82 year old male with PMH of ulcerative colitis and an infrarenal AAA that has been surveyed for the past several years. At his most recent ultrasound, his AAA had increased in size to 5.1cm in diameter. On discussion with patient today, he denies any abdominal or back pain. No pain in his legs or feet. No pain with exertion. He denies any medical problems or prior surgeries other than ulcerative colitis. He denies family history of aneurysmal disease. Current tobacco use with chewing tobacco. Last smoked cigarettes > 40 years ago. Review Of Systems: Review of systems completed in detail and negative except as outlined above Past Medical History: Ulcerative Colitis Surgical History: None Family History: No known family history of aneurysmal disease Social History: 1ppd cigarette use, quit 40 years ago. Current chewing tobacco use Allergies and Sensitivities: NKA Current Home Meds: (Last Updated 03/05 10:13) QUEtiapine (QUEtiapine 25 mg oral tablet) 25 mg PO bid cetirizine (ZyrTEC 10 mg oral tablet) 10 mg PO Daily PRN: as needed for allergy symptoms cholecalciferol (Vitamin D3 1000 intl units (25 mcg) oral capsule) 25 mcg PO Daily cyanocobalamin (Vitamin B-12 1000 mcg/mL injectable solution) 1,000 mcg IM [id number] mesalamine (Lialda 1.2 g oral delayed release tablet) 3.6 g PO bid omeprazole (PriLOSEC 20 mg oral delayed release capsule) 20 mg PO Daily predniSONE (predniSONE 10 mg oral tablet) take po in am with food: 5tabs x 4days,[id number] triamcinolone topical (triamcinolone 0.1% topical cream) 1 appl topical bid to affected area, do not use longer than 3 weeks Vitals: Last Updated 03/05/22 10:19 Weights: Last Updated 03/05/22 10:18 Date Temp Pulse BP RR SpO2 FIO2 Date Wt(kg) Wt(lb) 03/05 10:19 116/70 03/05 10:18 62.9 138 03/05 10:18 72 122/70 97 24 Hr Tmax: No Data Available Initial Wt: No Data Available Physical Exam: General: No acute distress, sitting comfortably HEENT: NC/AC, MMM Cardiac: Regular pulse Lungs: Breathing comfortably on room air Abdomen: Soft, nontender, non distended Back: Nontender Extremities: WWP. 2+ palpable femoral pulse. DP and PT 2+ palpable bilaterally Neuro: Alert and oriented. Skin: No lesions Studies: Review of CT abdomen and pelvis reveals infrarenal AAA measuring 5.1 cm in diameter ASSESSMENT: This is a pleasant 82 year old male with PMH of ulcerative colitis and an infrarenal AAA that has been surveyed for the past several years. At his most recent ultrasound, his AAA had increased in size to 5.1cm in diameter. He is asymptomatic and presenting without signs of rupture. However as his aneurysm has now reached 5.1cm in size, we recommended and discussed repair. The natural history and course of AAAs were discussed in detail. After review of patient's most recent abdominal CT, he would be a candidate for a percutaneous endovascular repair of his AAA. We discussed this in detail with the patient and his family and he would like to proceed with surgery. The details of the procedure, expected post-operative course, alteratives including open surgery or close monitoring with routine surveillance, and risks including bleeding, infection, damage to surrounding structures, need for conversion to open repair, need for future interventions, stroke and were explained. The patient expressed understanding, and wanted to proceed with repair. We will therefore go ahead and schedule him for the nearest mutually agreeable date. PLAN: Percutaneous EVAR I saw and evaluated the patient. Discussed with the resident and agree with the resident's findings and plan as documented in the resident's note. Signature Line Electronic Signature on File CC: Simone Lomax MD [address] [facility] [address] [facility] [place] [address] * Jerome Peguero MD Author Signature Dt/Tm: 03/05/2022 12:05 PM Resident Division of General Surgery Electronically Reviewed/Signed by: Alber Roach MD Cosigner Signature Dt /Tm: 03/09/2022 12:03 PM Manager Technical Services Dillon Richard [facility] [place] [address], [address] [place] [address] PC Result Type: .Outpt Ltr Date of Service: March 05, 2022 10:49 EST Authorization Status: Final Author or Import Date: MD Sudhir, Jerome on March 05, 2022 11:03 EST Verified By: MD Doc, Alber Martinez on March 09, 2022 12:03 EST Encounter info: [id number], [facility], Clinic, 03/05/2022 - 03/05/2022 Allergies Allergy/AdvReac Type Severity Reaction Status Date / Time prednisone AdvReac Severe Severe Verified 03/16/22 13:55 delirium, encephalopathy Home Medications Medication Instructions Recorded Confirmed Type cetirizine 10 mg tablet (Zyrtec) 10 mg PO QAM 09/05/18 03/11/22 History omeprazole 20 mg capsule,delayed 20 mg PO QAM #90 caps 12/31/21 03/11/22 Rx release quetiapine 25 mg tablet (Seroquel) 25 mg PO BID #120 tabs 02/09/22 03/11/22 Rx cholecalciferol (vitamin D3) 50 50 mcg PO QAM 03/11/22 03/11/22 History mcg (2,000 unit) tablet (Vitamin D3) mesalamine 1.2 gram tablet,delayed 2.4 g PO BID 03/11/22 03/11/22 History release (Lialda) Past Med/Surg History Medical History AAA (abdominal aortic aneurysm) Infrarenal abdominal aortic aneurysm measures up to 46 mm in diameter per 01/15/22 CT Asthma Per records Confusion Encephalopathy episode 10/2021 following steroid treatment for ulcerative colitis per PCP office visit 12/2021, reason for Seroquel COPD (chronic obstructive pulmonary disease) Dyslipidemia 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 GERD (gastroesophageal reflux disease) Hiatal hernia Schatzki's ring Ulcerative colitis Vision abnormalities "Very blurry"/limited vision 2/2 remote trauma/injury Surgical History H/O sinus surgery History of colonoscopy History of esophagogastroduodenoscopy (EGD) History of tooth extraction Family History Mother Acute myocardial infarction Cerebral aneurysm Sister COPD (chronic obstructive pulmonary disease) Unknown Cardiovascular disease Son Diabetes Brother Acute myocardial infarction Other No family history of adverse response to anesthesia Denies family history of Ovarian cancer Prostate cancer Myocardial infarction Breast cancer Lung cancer Colorectal cancer Stroke Social History Smoking Status: Former smoker Tobacco Type: Smokeless Tobacco (Dip or Chew) Second Hand Exposure: No; Hx Alcohol Use: No Hx Substance Use: No Preferred Language: Belgian Communication Ability: Effective Visual Impairment: Limited Hearing Ability: Normal 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
[2022-04-01] MEDS ORDERED: LACTATED RINGER'S 1,000 ML IV SCH (06:00)
[2022-04-01] MEDS ORDERED: ceFAZolin 2000MG 2,000 MG/15 ML SYR IV SCH (06:00)
[2022-04-01] MEDS ORDERED: MIDAZOLAM HCL 1 MG/ML 2ML VIAL ONE (06:46)
[2022-04-01] MEDS ORDERED: GLYCOPYRROLATE 0.2 MG/ML VIAL ONE (06:46)
[2022-04-01] MEDS ORDERED: DEXAMETHASONE SOD INJ 4 MG/ML VIAL ONE (06:46)
[2022-04-01] MEDS ORDERED: fentaNYL citrate 100 MCG/2 ML VIAL ONE (06:46)
[2022-04-01] MEDS ORDERED: NEOSTIGMINE METHYLSULFATE 1 MG/ML 10ML VIAL ONE (06:46)
[2022-04-01] MEDS ORDERED: ONDANSETRON INJ 2 MG/ML 2 ML VIAL ONE (06:46)
[2022-04-01] MEDS ORDERED: PROPOFOL IV EMULSION 10 MG/ML 20 ML VIAL IV ONE (06:46)
[2022-04-01] MEDS ORDERED: SUGAMMADEX SODIUM 200 MG/2 ML VIAL IV ONE (07:01)
[2022-04-01] MEDS ORDERED: NITROGLYCERIN/D5W 100MCG/ML 20ML SYR ONE (07:02)
[2022-04-01] MEDS ORDERED: BUPIVACAINE/EPINEPHRINE 0.5% MPF 1:200,000 10 ML VIAL ONE ×2 (07:14)
[2022-04-01] MEDS ORDERED: LIDOCAINE 1% LOCAL 20 ML VIAL ONE (07:14)
--- NOTE | 2022-04-01 07:50 | History & Physical Bridge Note ---
Date of Service April 01, 2022 History & Physical Bridge Note I have examined the patient, reviewed the History & Physical and in the interval since the performance of the History & Physical I have noted the following changes of clinical significance: no changes noted
[2022-04-01] MEDS ORDERED: HEPARIN SOD (PORCINE) 1000 UNIT/ML ONE (08:29)
[2022-04-01] MEDS ORDERED: SUCCINYLCHOLINE CHLORIDE 20 MG/ML 10 ML VIAL IV ONE (08:29)
[2022-04-01] MEDS ORDERED: ePHEDrine sulfate 50 MG/ML SYR ONE (08:29)
[2022-04-01] MEDS ORDERED: ROCURONIUM BROMIDE 10 MG/ML 5 ML VIAL IV ONE (08:29)
--- NOTE | 2022-04-01 09:15 | Procedure Note ---
Procedure Note Date of Service April 01, 2022 Note Urology was called on 04/01/2022 for difficult catheter placement in the operating room. Patient has a history of hypospadias and despite multiple attempts by the OR team, urethral meatus could not be identified. Upon arrival, the patient was asleep under anesthesia. His penis and been prepped and draped in normal sterile fashion. Upon inspection, he had a hypospadias and the orthotopic meatus had a blind-ending to it. There was mild erythema consistent with prior catheter attempts. There was a subtle pit just proximal to this which looked suspicious for the urethra as well. Using a 14 [place] silicone catheter as well as a 0.038 inch zip wire, I attempted to probe both of these locations to identify the urethra. Neither location allow the wire to advance. As we were manipulating the penis, there appeared to be a small amount of fluid discharging from the mid penile shaft. Applying some gentle pressure, we were able to milk more of this fluid out which revealed a subtle slit, suspicious for the true meatus. A zip wire was advanced through this without resistance. An appropriate amount of the wire was curled within the bladder. Over the wire, I advanced a councilized 14 Korean silicone catheter. Once this was in appropriate position, the balloon was inflated with 10 mL normal saline. The wire was removed and the catheter was attached to gravity drainage with appropriate urine output. Catheter will be managed per the primary team. Assuming he is able to void well afterwards, he does not require urology follow-up unless desired. Coding
[2022-04-01] MEDS ORDERED: VISIPAQUE IV PRN (09:26)
[2022-04-01] MEDS ORDERED: VASOPRESSIN 20 UNIT/ML VIAL ONE (09:31)
[2022-04-01] MEDS ORDERED: ARISTA ABSORBABLE HEMOSTAT 3GM TOP ONE (09:31)
[2022-04-01] MEDS ORDERED: ePHEDrine sulfate 50 MG/ML AMP IV PRN (09:36)
[2022-04-01] MEDS ORDERED: LABETALOL HCL IV 5 MG/ML 20ML IV PRN (09:36)
[2022-04-01] MEDS ORDERED: PROMETHAZINE HCL 12.5 MG in SODIUM CHLORIDE 0.9% 50 ML IV PRN (09:36)
[2022-04-01] MEDS ORDERED: FLUMAZENIL 0.1 MG/1 ML 10 ML VIAL IV PRN (09:36)
[2022-04-01] MEDS ORDERED: NALOXONE HCL 0.4 MG/1 ML VIAL/CARP IV PRN (09:36)
[2022-04-01] MEDS ORDERED: fentaNYL citrate 100 MCG/2 ML VIAL IV PRN (09:36)
[2022-04-01] MEDS ORDERED: ONDANSETRON INJ 2 MG/ML 2 ML VIAL IV PRN (09:36)
[2022-04-01] MEDS ORDERED: ATROPINE SULFATE 0.1 MG/ML 10ML SYR IV PRN (09:36)
--- NOTE | 2022-04-01 09:39 | Procedure Note ---
Angiogram Post Procedure Fluoroscopy Time (minutes): 7.4 Radiation (mGy): 75 Contrast: 80 Post Operative Report Pre & Post Diagnosis Operation Date: 04/01/22 07:30 Pre-Op Diagnosis: Infrarenal Abdominal Aortic Aneurysm Post-Op Diagnosis: Infrarenal Abdominal Aortic Aneurysm I identified the patient and participated in the time-out.: Yes Procedure Operation Date: 04/01/22 07:30 Actual Procedures p Percutaneous Endovascular Aneurysm Repair Abdominal Aortic Aneurysm,Ultrasound Localization of Bilateral Femoral Arteries, Mechanical Closure of Bilateral Femoral Arteries(Bilateral) - Alber Roach MD Surgeon Alber Roach MD 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 It is in need of repair. Open versus endovascular was discussed with the patient. He elected to go ahead with endovascular repair. I have discussed the risks options and benefits of the procedure with the patient. The patient understands the risks options and benefits and agrees to the procedure. Description of Procedure Patient was brought to the OR and placed in supine position. Patient was intubated and general anesthesia was accomplished. Vela was placed by urology due to hypospadias. A safety timeout was performed to identify patient's name, date of and the correct procedure. Abdomen and groins were prepped and draped in sterile fashion. Ultrasound guided percutaneous access of the right groin was performed. The right common femoral artery was patent. A percutaneous puncture was made in the right common femoral artery using ultrasound. The depth finder for the Manta device was used to measure the depth of the puncture. It was found to be 2 cm. The depth finder was removed and the 8 Egyptian sheath inserted. We turned our attention to the right side and we similarly accessed the left common femoral artery. The left common femoral artery was patent. Using ultrasound left common femoral artery was punctured. The depth finder was used to measure the depth of the puncture of the left side and also found to be 2 cm from the skin edge. This was removed and 8 Egyptian sheath was inserted. Patient was heparinized with 8000 of IV heparin. Through the right groin, we advanced a soft Glidewire followed by a Kumpe catheter. The wire then was exchanged for a stiff Josue wire. We then cannulated the aorta from the left side using 035 Glidewire and a Kumpe catheter. Once this was placed in the super renal aorta the wire was exchanged to a Josue wire.. We then upsized our access on the right side with a 14 Egyptian dilator and subsequently to 18 Egyptian dry seal sheath. The left groin sheath was then exchanged to a 12 Egyptian dry seal sheath. The sheaths were advanced all the way up in the aortic sac. A marker pig was inserted to the left groin. Aortography was performed. The level of the renal arteries were marked on the screen. This showed patency of both renal arteries and a acceptable neck for deployment of the graft. We advanced the device ([place] excluder conformable 26 mm x 14.5 mm x 12 cm) through the right sheath. The shaft of the graft was then deployed. An aortogram was performed. Both renal arteries were visualized just above the top of the deployed graft. Aortogram confirmed good location of the proximal end of the graft. The hooks were then deployed. Cannulation of the gate was then accomplished using an 035 glidewire and a Kumpke catheter. The wire spun easily in the neck of the graft. The 035 Glidewire was removed and a Josue wire was reinserted. A marker pigtail was then inserted over the Smith wire. The 12 Egyptian sheath was then pulled down into the external iliac and an arteriogram was performed of the left iliac system. This identified the origin of the hypogastric and the left side. We then removed the pigtail. We reinserted a 12 Egyptian sheath dilator and advanced the sheath into the gate of the graft. Prior to inserting the contralateral limb we deployed the ipsilateral limb to complete the deployment of the graft. The device was then removed from the right groin. We then inserted an 16mm x 18 mm x 11.5 contralateral limb. The 12 Egyptian sheath was then pulled down to below the level of the contralateral limb. Contralateral limb was then deployed without difficulty. The 18 Egyptian sheath on the right side was then pulled down into the pelvis. Hand-injection was then performed to kamari where the bifurcation of the common iliac artery was. We then chose a 16 x 18 x 9-1/2 contralateral limb to extend the right side limb. The graft was advanced to the 18 Egyptian sheath. It was deployed with the distal end falling just above the iliac bifurcation. The Q50 balloon was then inserted through the left sheath. The proximal attachment site, the gate and the distal attachment site were ballooned with the Q50 balloon. The balloon was then removed. Was inserted through the right side 18 Egyptian sheath and then dilated the overlap of the limbs and the distal attachment site of the right limb. The balloon was then removed. The pigtail was then inserted through the left side to above the renal arteries. A final arteriogram was then performed which showed no evidence of a type I endoleak. Graft showed no evidence of narrowing throughout. An 035 Glidewire was then reinserted into the pigtail and the pigtail removed. The 12 Egyptian sheath was then pulled and a 14 Egyptian Manta device was inserted. This was deployed without difficulty. No bleeding was noted after deployment. The right groin sheath was then also pulled. An 18 Egyptian Manta device was inserted and deployed. No evidence of bleeding was seen on the right side either. Sterile dressings were applied to the wounds.The patient left the operation room in satisfactory condition and tolerated the procedure well. All needle and sponge counts were correct at the end of the procedure. Blanca Puentes Pac assisted due to lack of resident availability and was necessary for positioning, draping, retraction, wound closure deep layers, subcutaneous tissue, and skin closure and was necessary for assisting with the case. I attest to the content of the Intraoperative Record and any orders documented therein. Any exceptions are noted below.
[2022-04-01 10:08] LABS: Hematocrit (blood only) 37.2 % (42.0-52.0); Hemoglobin 12.5 g/dl (14.0-18.0)
--- NOTE | 2022-04-01 10:57 | Anesthesiology Progress Note ---
Date of Service April 01, 2022 Anesthesia Post Procedure Vital Signs Vital Signs: Temp Pulse Pulse Resp BP BP Pulse Ox 04/01/22 10:30 73 20 119/65 95 04/01/22 10:20 71 16 116/63 95 04/01/22 10:00 72 14 128/65 99 04/01/22 10:10 36.7 C 77 92 H 120/64 94 04/01/22 09:50 70 17 142/75 H 99 04/01/22 09:40 36.0 C L 70 12 143/71 H 99 04/01/22 05:58 36.5 C 65 18 128/84 122/85 97 O2 Del Method O2 Flow Rate 04/01/22 10:30 Nasal Cannula 2 04/01/22 10:20 Nasal Cannula 2 04/01/22 10:00 Oxymask 2 04/01/22 10:10 Nasal Cannula 2 04/01/22 09:50 Oxymask 4 04/01/22 09:40 Oxymask 6 04/01/22 05:58 Room Air Transfer of Care Handoff Completed per policy Notes Mental Status: alert / awake / arousable Patient Amnestic to Procedure: Yes Nausea / Vomiting: adequately controlled Pain: adequately controlled Airway Patency, RR, SpO2: stable & adequate BP & HR: stable & adequate Hydration State: stable & adequate Anesthetic Complications: no major complications apparent
[2022-04-01] MEDS ORDERED: oxyCODONE/ACETAMINOPHEN 5mg/325mg TAB PO PRN (11:53)
[2022-04-01] MEDS: MoRPHine SULFATE 4 MG/ML 1 ML CARP\\VIAL IV PRN ×2 (12:36→13:20)
[2022-04-01] MEDS: D5W AND 1/2NSS 1,000 ML IV SCH ×2 (12:38→20:55)
[2022-04-01] MEDS: ceFAZolin 2000MG 2,000 MG/15 ML SYR IV SCH ×2 (13:17→20:54)
[2022-04-01] MEDS ORDERED: ACETAMINOPHEN 1,000 MG/100 ML VIAL IV STA (13:20)
--- NOTE | 2022-04-01 13:21 | Critical Care Consultation ---
Date of Consultation April 01, 2022 Assessment & Plan (1) AAA (abdominal aortic aneurysm): Reason Critically Ill: 82-year-old male with PEVAR of abdominal aortic aneurysm PLAN: Neuro: Bilateral groin pain -I suspect this is secondary to postoperative state and recent instrumentation -Additionally the radiation occasionally down into the left lower leg I suspect is secondary to femoral nerve irritation Resp: History of COPD -Currently stable CV: Abdominal aortic aneurysm -Status post repair ID: Monitor fever curve GI/Nutrition: History ulcerative colitis: No evidence to suggest acute flare -Mesalamine as outpatient Heme: Acute blood loss anemia: Mild DVT prophylaxis: Mechanical prophylaxis, patient to be ambulatory under 24 hours Endocrine: ICU hyperglycemia protocol Vascular access: Peripheral IV Code Status: Full code Disposition: ICU (2) Post-operative state: (3) Post-op pain: (4) Bilateral groin pain: (5) Ulcerative colitis: History of Present Illness Reason for Consultation: PEVAR of infrarenal abdominal aortic aneurysm Attending Physician: Alber Roach MD History of Present Illness Patient is an 82-year-old male who underwent routine percutaneous endovascular aneurysmal repair of an abdominal aortic aneurysm. Patient is complaining of moderate to severe bilateral groin pain it does not radiate into the abdomen and occasionally on the left side and does radiate down into the anterior portion of the leg. Denies chest pain or shortness of breath. He did not eat his lunch as he does not feel hungry. Allergies Allergy/AdvReac Type Severity Reaction Status Date / Time prednisone AdvReac Severe Severe Verified 04/01/22 05:55 delirium, encephalopathy Home Medications Medication Instructions Recorded Confirmed Type cetirizine 10 mg tablet (Zyrtec) 10 mg PO QAM 09/05/18 04/01/22 History omeprazole 20 mg capsule,delayed 20 mg PO QAM #90 caps 12/31/21 04/01/22 Rx release quetiapine 25 mg tablet (Seroquel) 25 mg PO BID #120 tabs 02/09/22 04/01/22 Rx cholecalciferol (vitamin D3) 50 50 mcg PO QAM 03/11/22 04/01/22 History mcg (2,000 unit) tablet (Vitamin D3) mesalamine 1.2 gram tablet,delayed 2.4 g PO BID 03/11/22 04/01/22 History release (Lialda) Patient History Medical History AAA (abdominal aortic aneurysm) Infrarenal abdominal aortic aneurysm measures up to 46 mm in diameter per 01/15/22 CT Asthma Per records Confusion Encephalopathy episode 10/2021 following steroid treatment for ulcerative colitis per PCP office visit 12/2021, reason for Seroquel COPD (chronic obstructive pulmonary disease) Dyslipidemia 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 GERD (gastroesophageal reflux disease) Hiatal hernia Schatzki's ring Ulcerative colitis Vision abnormalities "Very blurry"/limited vision 2/2 remote trauma/injury Surgical History H/O sinus surgery History of colonoscopy History of esophagogastroduodenoscopy (EGD) History of tooth extraction Family History Mother Acute myocardial infarction Cerebral aneurysm Sister COPD (chronic obstructive pulmonary disease) Unknown Cardiovascular disease Son Diabetes Brother Acute myocardial infarction Other No family history of adverse response to anesthesia Denies family history of Ovarian cancer Prostate cancer Myocardial infarction Breast cancer Lung cancer Colorectal cancer Stroke Social History Smoking Status: Former smoker Tobacco Type: Smokeless Tobacco (Dip or Chew) Smoking End Date: Quit 40+ year ago; Second Hand Exposure: No; Do You Dip or Chew Tobacco: Yes (Advised none DOS); Hx Alcohol Use: No Hx Substance Use: No Preferred Language: Par[place]ayan Communication Ability: Effective Visual Impairment: Limited Hearing Ability: Normal Evaluation Specialist Required: No Beliefs That Will Affect Care: None marital status: Current Living Situation: Spouse Current Living Situation Comment: Lives at home with Karrie current occupational status: retired How many Children do You have: 3 Feels Safe at Home: Yes Safety Concerns: Feels Safe At This Time Childhood Exposure to Second-Hand Smoke: No caffeine: Yes (coffee and tea ) Dental Care, Regularly: No Physical Activity Frequency: 3-4 Times per Week Physical Activity Frequency Comment: goes on walks Seatbelt Use: always Sunscreen Use: No Assistive Devices: Denture - Upper and Glasses Physical Exam Physical Exam: General: Alert. nontoxic. Skin: Warm, dry, Head: Atraumatic Ears, nose, mouth and throat: airway patent Cardiovascular: Normal peripheral perfusion Respiratory: no respiratory distress Gastrointestinal: Abdomen is soft nondistended, nontender, no guarding, no rebound Bilateral groins have a dressing in place which is clean and shows no shadowing., No evidence of hematoma, no expanding palpable masses in the groin. Musculoskeletal: No deformity Results & Data Results & Data ([facility]) Vital Signs (Past 12 Hours) Vital Signs Temp Pulse Pulse Resp BP BP Pulse Ox 04/01/22 10:30 73 20 119/65 95 04/01/22 10:20 71 16 116/63 95 04/01/22 10:00 72 14 128/65 99 04/01/22 10:10 36.7 C 77 92 H 120/64 94 04/01/22 09:50 70 17 142/75 H 99 04/01/22 09:40 36.0 C L 70 12 143/71 H 99 04/01/22 05:58 36.5 C 65 18 128/84 122/85 97 O2 Del Method O2 Flow Rate 04/01/22 10:30 Nasal Cannula 2 04/01/22 10:20 Nasal Cannula 2 04/01/22 10:00 Oxymask 2 04/01/22 10:10 Nasal Cannula 2 04/01/22 09:50 Oxymask 4 04/01/22 09:40 Oxymask 6 04/01/22 05:58 Room Air Critical Care Results & Data Vital Signs (Past 12 Hours) Vital Signs Temp Pulse Pulse Resp BP BP Pulse Ox 04/01/22 10:30 73 20 119/65 95 04/01/22 10:20 71 16 116/63 95 04/01/22 10:00 72 14 128/65 99 04/01/22 10:10 36.7 C 77 92 H 120/64 94 04/01/22 09:50 70 17 142/75 H 99 04/01/22 09:40 36.0 C L 70 12 143/71 H 99 04/01/22 05:58 36.5 C 65 18 128/84 122/85 97 O2 Del Method O2 Flow Rate 04/01/22 10:30 Nasal Cannula 2 04/01/22 10:20 Nasal Cannula 2 04/01/22 10:00 Oxymask 2 04/01/22 10:10 Nasal Cannula 2 04/01/22 09:50 Oxymask 4 04/01/22 09:40 Oxymask 6 04/01/22 05:58 Room Air Lab & Micro Results (Past 24 Hours) Hgb 12.5 g/dl (14.0-18.0) L 04/01/22 Hct 37.2 % (42.0-52.0) L 04/01/22 No Data to Display No Data to Display I & O Totals 24 Hours 03/31/22 04/01/22 04/02/22 06:59 06:59 06:59 Intake Total 1000 / 1000 Output Total 60 / 60 Balance 940 / 940 Cumulative 03/05/22 13:06 thru 04/01/22 09:40 Intake Total 1000 Output Total 60 Balance 940 RT Ventilator Mngmt (Last Documented) Ventilator Ordered Settings Respiratory Rate 20 04/01/22 10:30 Ventilator - PT Measurements Respiratory Rate 20 Coding Level of Care Code INP/OBS CONSULT LVL 4, 60 MIN Diagnoses AAA (abdominal aortic aneurysm) I71.4 Post-operative state Z98.890 Post-op pain G89.18 Bilateral groin pain R10.31; R10.32 Ulcerative colitis K51.90
[2022-04-01] MEDS ORDERED: MELATONIN 3 MG TAB PO PRN (18:19)
[2022-04-01] MEDS ORDERED: MAGNESIUM OXIDE 400 MG TAB PO ONE (18:20)
[2022-04-01] MEDS: MESALAMINE 800 MG TABCR PO SCH (20:54)
[2022-04-01] MEDS: QUEtiapine FUMARATE 25 MG TABLET PO SCH (20:54)
[2022-04-02 00:12] VITALS: TEMP 97.9
[2022-04-02 05:08] LABS: Hematocrit (blood only) 35.3 % (42.0-52.0); Hemoglobin 11.5 g/dl (14.0-18.0)
[2022-04-02 05:27] LABS: BUN Creatinine Ratio 11.4 (10-20); Creatinine Clr Calc Pharmacy 58.8 ml/min; Est GFR (African American) 93.4 ml/min; Est GFR (Non-African American) 80.6 ml/min; Potassium 3.9 mmol/L (3.5-5.1)
--- NOTE | 2022-04-02 06:54 | Critical Care Progress Note ---
Date of Service April 02, 2022 Assessment & Plan (1) AAA (abdominal aortic aneurysm): Plan: Reason Critically Ill: 82-year-old male with PEVAR of abdominal aortic aneurysm on 04/01/22 PLAN: Neuro: Bilateral groin pain -I suspect this is secondary to postoperative state and recent instrumentation -Additionally will radiate down into the left lower leg likely 2/2 to femoral nerve irritation Resp: History of COPD -Currently stable CV: Abdominal aortic aneurysm -Status post repair ID: Monitor fever curve GI/Nutrition: History ulcerative colitis: No evidence to suggest acute flare -Mesalamine as outpatient Heme: Acute blood loss anemia: Mild DVT prophylaxis: Mechanical prophylaxis, patient to be ambulatory under 24 hours Endocrine: ICU hyperglycemia protocol Vascular access: Peripheral IV Code Status: Full code Disposition: ICU (2) Post-operative state: (3) Post-op pain: (4) Bilateral groin pain: (5) Ulcerative colitis: Admission and Anticipated Discharge Date Admission Date: April 01, 2022 Physical Exam Physical Exam: General: Alert. nontoxic. Skin: Warm, dry, Head: Atraumatic Ears, nose, mouth and throat: airway patent Cardiovascular: Normal peripheral perfusion Respiratory: no respiratory distress Gastrointestinal: Abdomen is soft nondistended, nontender, no guarding, no rebound Bilateral groins have a dressing in place which is clean and shows no shadowing., No evidence of hematoma, no expanding palpable masses in the groin. Musculoskeletal: No deformity Results & Data Results & Data ([facility]) Vital Signs (Past 12 Hours) Vital Signs Temp Pulse Resp BP Pulse Ox O2 Del Method 04/02/22 06:00 62 16 91 Room Air 04/02/22 05:00 65 17 92 Room Air 04/02/22 04:00 36.6 C 63 14 98/57 L 91 Room Air 04/02/22 03:00 66 15 91 Room Air 04/02/22 02:00 67 14 91 Room Air 04/02/22 01:00 68 15 91 Room Air 04/02/22 00:00 36.6 C 69 15 114/63 90 Room Air 04/01/22 23:00 70 16 90 Room Air 04/02/22 00:00 Room Air 04/01/22 19:00 66 04/01/22 22:00 36.5 C 68 16 91 04/01/22 21:00 36.5 C 61 19 92 04/01/22 20:00 36.4 C L 69 16 91 04/01/22 19:00 66 17 92 Laboratory Results 04/02/22 04/02/22 04/01/22 Range/Units 04:58 04:58 11:00 Hgb 11.5 L (14.0-18.0) g/dl Hct 35.3 L (42.0-52.0) % Sodium 134 L (136-145) mmol/L Potassium 3.9 (3.5-5.1) mmol/L Chloride 103 (98-107) mmol/L Carbon Dioxide 27 (21-32) mmol/L Anion Gap 4 (3-11) BUN 10 (6-23) mg/dl Creatinine 0.88 (0.6-1.4) mg/dl Est Cr Clr Drug Dosing 58.8 ml/min Est GFR ( Amer) 93.4 ml/min Est GFR (Non-Af Amer) 80.6 ml/min BUN/Creatinine Ratio 11.4 (10-20) Glucose 137 H (70-99(Fasting)) mg/dl Calcium 8.0 L (8.5-10.1) mg/dl Nasal Screen MRSA (PCR) Negative (Negative) 04/01/22 Range/Units 09:51 Hgb 12.5 L (14.0-18.0) g/dl Hct 37.2 L (42.0-52.0) % Sodium (136-145) mmol/L Potassium (3.5-5.1) mmol/L Chloride (98-107) mmol/L Carbon Dioxide (21-32) mmol/L Anion Gap (3-11) BUN (6-23) mg/dl Creatinine (0.6-1.4) mg/dl Est Cr Clr Drug Dosing ml/min Est GFR ( Amer) ml/min Est GFR (Non-Af Amer) ml/min BUN/Creatinine Ratio (10-20) Glucose (70-99(Fasting)) mg/dl Calcium (8.5-10.1) mg/dl Nasal Screen MRSA (PCR) (Negative)
[2022-04-02] MEDS: MESALAMINE 800 MG TABCR PO SCH (08:29)
[2022-04-02] MEDS: QUEtiapine FUMARATE 25 MG TABLET PO SCH (08:29)
[2022-04-02] MEDS ORDERED: PANTOprazole 40 MG TAB PO SCH (09:00)
[2022-04-02] MEDS ORDERED: CETIRIZINE HCL 10 MG TABLET PO SCH (09:00)
[2022-04-02] MEDS ORDERED: CHOLECALCIFEROL 1,000 UNITS 25 MCG TAB PO SCH (09:00)
[2022-04-02 12:31] VITALS: O2SAT 90
--- NOTE | 2022-04-02 13:21 | Surgery Progress Note ---
Date of Service April 02, 2022 Assessment & Plan (1) Status post endovascular aneurysm repair: Plan: Doing well post op. No groin hematomas present. Will D/C today. Admission and Anticipated Discharge Date Admission Date: April 01, 2022 Subjective Patient claims mild groin discomfort, intermittently. No foot or leg pain. Physical Exam Constitutional: WD/WN, vitals as above Respiratory: normal respiratory effort; no respiratory distress pulse ox 89-92 Cardiovascular: Rate/Rhythm: regular rate and regular rhythm Vessels: posterior tibial pulses present and dorsalis pedis pulses present Extremities: normal capillary refill Gastrointestinal (Abdomen): Inspection/Auscultation: abdomen normal to inspection; abdomen not distended Percussion/Palpation: abdomen soft; abdomen nontender Skin: + incision (puncture sites flat, no hematomas present) Neurologic: CN's II-XI intact bilaterally and moves all extremities Psychiatric: Orientation: alert and oriented x 3 Results & Data ([facility]) Vital Signs (Past 12 Hours) Vital Signs Temp Pulse Resp BP Pulse Ox O2 Del Method 04/02/22 12:20 113/58 L 04/02/22 12:20 77 20 90 04/02/22 12:00 73 20 04/02/22 11:00 94 H 25 H 04/02/22 10:46 103/56 L 04/02/22 10:46 74 20 91 04/02/22 10:46 103/56 L 04/02/22 08:00 Room Air 04/02/22 10:00 79 17 91 04/02/22 09:48 77 18 90 04/02/22 09:48 108/56 L 04/02/22 09:00 81 19 90 04/02/22 08:11 116/65 04/02/22 08:11 96 H 22 93 04/02/22 08:00 36.6 C 99 H 19 04/02/22 07:00 63 15 91 04/02/22 08:50 63 04/02/22 08:40 Room Air 04/02/22 06:00 62 16 91 Room Air 04/02/22 05:00 65 17 92 Room Air 04/02/22 04:00 36.6 C 63 14 98/57 L 91 Room Air 04/02/22 03:00 66 15 91 Room Air 04/02/22 02:00 67 14 91 Room Air
--- NOTE | 2022-04-02 13:22 | Discharge Summary ---
Date of Service April 02, 2022 Admission HPI Per Admitting Provider Name: JANINE NUNN Patient Number: [id number] : 1940 Date of Service: 03/05/2022 Chief Complaint: Abdominal aneurysm History of Present Illness: We had the pleasure of seeing your patient Mr. Nunn in our Vascular Surgery clinic at our [facility] office today. As you well know he is a very pleasant 82 year old male with PMH of ulcerative colitis and an infrarenal AAA that has been surveyed for the past several years. At his most recent ultrasound, his AAA had increased in size to 5.1cm in diameter. On discussion with patient today, he denies any abdominal or back pain. No pain in his legs or feet. No pain with exertion. He denies any medical problems or prior surgeries other than ulcerative colitis. He denies family history of aneurysmal disease. Current tobacco use with chewing tobacco. Last smoked cigarettes > 40 years ago. Review Of Systems: Review of systems completed in detail and negative except as outlined above Past Medical History: Ulcerative Colitis Surgical History: None Family History: No known family history of aneurysmal disease Social History: 1ppd cigarette use, quit 40 years ago. Current chewing tobacco use Allergies and Sensitivities: NKA Current Home Meds: (Last Updated 03/05 10:13) QUEtiapine (QUEtiapine 25 mg oral tablet) 25 mg PO bid cetirizine (ZyrTEC 10 mg oral tablet) 10 mg PO Daily PRN: as needed for allergy symptoms cholecalciferol (Vitamin D3 1000 intl units (25 mcg) oral capsule) 25 mcg PO Daily cyanocobalamin (Vitamin B-12 1000 mcg/mL injectable solution) 1,000 mcg IM [id number] mesalamine (Lialda 1.2 g oral delayed release tablet) 3.6 g PO bid omeprazole (PriLOSEC 20 mg oral delayed release capsule) 20 mg PO Daily predniSONE (predniSONE 10 mg oral tablet) take po in am with food: 5tabs x 4days,[id number],6qeyea6tans,[id number],[id number] triamcinolone topical (triamcinolone 0.1% topical cream) 1 appl topical bid to affected area, do not use longer than 3 weeks Vitals: Last Updated 03/05/22 10:19 Weights: Last Updated 03/05/22 10:18 Date Temp Pulse BP RR SpO2 FIO2 Date Wt(kg) Wt(lb) 03/05 10:19 116/70 03/05 10:18 62.9 138 03/05 10:18 72 122/70 97 24 Hr Tmax: No Data Available Initial Wt: No Data Available Physical Exam: General: No acute distress, sitting comfortably HEENT: NC/AC, MMM Cardiac: Regular pulse Lungs: Breathing comfortably on room air Abdomen: Soft, nontender, non distended Back: Nontender Extremities: WWP. 2+ palpable femoral pulse. DP and PT 2+ palpable bilaterally Neuro: Alert and oriented. Skin: No lesions Studies: Review of CT abdomen and pelvis reveals infrarenal AAA measuring 5.1 cm in diameter ASSESSMENT: This is a pleasant 82 year old male with PMH of ulcerative colitis and an infrarenal AAA that has been surveyed for the past several years. At his most recent ultrasound, his AAA had increased in size to 5.1cm in diameter. He is asymptomatic and presenting without signs of rupture. However as his aneurysm has now reached 5.1cm in size, we recommended and discussed repair. The natural history and course of AAAs were discussed in detail. After review of patient's most recent abdominal CT, he would be a candidate for a percutaneous endovascular repair of his AAA. We discussed this in detail with the patient and his family and he would like to proceed with surgery. The details of the procedure, expected post-operative course, alteratives including open surgery or close monitoring with routine surveillance, and risks including bleeding, infection, damage to surrounding structures, need for conversion to open repair, need for future interventions, stroke and were explained. The patient expressed understanding, and wanted to proceed with repair. We will therefore go ahead and schedule him for the nearest mutually agreeable date. PLAN: Percutaneous EVAR I saw and evaluated the patient. Discussed with the resident and agree with the resident's findings and plan as documented in the resident's note. Signature Line Electronic Signature on File CC: Simone Lomax MD [id number] [facility] [address] [facility] [address] * Jerome Peguero MD Author Signature Dt/Tm: 03/05/2022 12:05 PM Resident Division of General Surgery Electronically Reviewed/Signed by: Alber Roach MD Cosigner Signature Dt/Tm: 03/09/2022 12:03 PM Extruder Tender Dillon Richard [facility] [place] [address], [address] [place] [address] PC Result Type: .Outpt Ltr Date of Service: March 05, 2022 10:49 EST Authorization Status: Final Author or Import Date: MD Peguero Peter on March 05, 2022 11:03 EST Verified By: MD Doc, Alber Martinez on March 09, 2022 12:03 EST Encounter info: [id number], [facility], Clinic, 03/05/2022 - 03/05/2022 Admission Exam Per Admitting Provider General: No acute distress, sitting comfortably HEENT: NC/AC, MMM Cardiac: Regular pulse Lungs: Breathing comfortably on room air Abdomen: Soft, nontender, non distended Back: Nontender Extremities: WWP. 2+ palpable femoral pulse. DP and PT 2+ palpable bilaterally Neuro: Alert and oriented. Skin: No lesions Principal Diagnosis Abdominal aortic aneurysm Discharge Data Allergies Allergy/AdvReac Type Severity Reaction Status Date / Time prednisone AdvReac Severe Severe Verified 04/01/22 05:55 delirium, encephalopathy Consultations 04/01/22 12:28 Consult Reaming Machine Tender Routine Procedures Performed Operation Date: 04/01/22 07:30 Actual Procedures p Percutaneous Endovascular Aneurysm Repair Abdominal Aortic Aneurysm,Ultrasound Localization of Bilateral Femoral Arteries, Mechanical Closure of Bilateral Femoral Arteries(Bilateral) - Alber Roach MD Ordered Studies 04/01/22 07:02 EV AAA repair aorta only Routine US EV guide vascular access Routine Total Time Total Time Spent Total Time Spent (In Minutes): 0 Discharge Plan Discharge Items Patient Disposition: Home - Self-Care Reason For Visit: AAA Discharge Diagnosis: Abdominal aortic aneurysm Activity: Per Instructions section Non-emergency contact: Surgeon Call non-emergency contact if: your temperature is above 101.5, your wound has increased redness, your wound has increased drainage and your wound pain has increased Follow-up/Referrals: Simone Lomax MD [Primary Care Provider] - Diet: Heart Healthy Addtl Attending Provider Instructions: SPECIAL CARE INSTRUCTIONS: Medications: * Continue to take your medications as directed. Incision/Puncture Site Care: * You will have an incision or puncture in each of your groins. Liquid glue will be used to seal your incisions/puncture site. This will lift off as the incisions/puncture sites heal. * If Liquid glue is not used, there will be small dressings covering your incisions. After you get home, you may remove the dressings and shower - allowing the warm soapy water to run over it. * Be sure to dry the sites well and keep them dry. * DO NOT SOAK IN A TUB/POOL/etc. UNTIL ALL SURGICAL SITES ARE HEALED. DO NOT REMOVE THE GLUE UNTIL THE INCISIONS HEAL. Restrictions: * Limit yourself to auger operator activity for the first week. * You may walk and go up and down steps. * Avoid excessive bending or movement at the level of the incisions or punctures. Risks and Possible Complications: * Infection/Drainage/Bleeding - Drainage or bleeding from the incisions/puncture site should be minimal. If you have excessive bleeding or drainage, call our office ([phone]) right away. * Pain/Numbness - You may experience some mild pain or soreness at your incision sites. You may also have some numbness around the incisions or into the insides of your thighs. Bruising is normal and should resolve within 2 weeks. * Changes in Appetite or Bowel Habits - Mostly related to anesthesia and pain medication, some patients have reported decreased appetite and/or problems with constipation. These symptoms usually improve over a few weeks. Remembering to take an [id number] stool softener, as directed, will help you to avoid constipation. Call our office and seek emergent treatment if you develop: * Fever or chills * Have a temperature greater than 101 degrees F * Any redness or purulent drainage from your incisions or punctures * Severe abdominal, chest or back pain SKIN IRRITATION: * You may experience some redness and/or swelling in the area where radiation was administered. If any skin irritation occurs, please contact your family physician. You will be receiving a call from the Vascular Surgery Nurse after you are discharged. FOLLOW UP VISIT: It is important for you to keep your follow up appointments with your medical provider. Keep any scheduled doctor appointments. Call [phone] to schedule a follow up appointment if one not already scheduled. Pending Studies at Discharge: No Stand-Alone Forms: [email or web address], Smoking Cessation Medications and DC Order Prescriptions: New oxycodone-acetaminophen [Percocet] 5-325 mg tablet 1 tab PO Q6H PRN (Reason: pain) Qty: 14 0RF Continued omeprazole 20 mg capsule,delayed release(DR/EC) 20 mg PO QAM Qty: 90 3RF quetiapine [Seroquel] 25 mg tablet 25 mg PO BID Qty: 120 0RF cetirizine [Zyrtec] 10 mg Tablet 10 mg PO QAM mesalamine [Lialda] 1.2 gram Tablet,Delayed Release (Dr/Ec) 2.4 g PO BID cholecalciferol (vitamin D3) [Vitamin D3] 50 mcg (2,000 unit) Tablet 50 mcg PO QAM Admission Data Admit Date/Time: 04/01/22 07:50 Attending Provider: Alber Roach Admit Provider: Alber Roach Primary Care Provider: Simone Lomax Other Providers: Guerrero Hinds ; Truman Wallace ; Shawn Celestin ; Juvenal Damian ; Ignacio Cheng ; Jerel Hudson ; Denny Devries ; Familia Olson ; Palak Lamas Other Interventions: Discharge Summary Assessment (RN) Last Done: 04/02/22 13:16
[2022-04-02 13:30] VITALS: BP 112/57; PULSE 74
== END 2022-04-02 14:24 | disposition home or self-care (01) | DRG 269 ==
LOC: ASU 05:25 → 1E 07:50